=== PATIENT | female | born 1945 | race Caucasian/White ===

== ENCOUNTER 2021-05-12 22:13 | Inpatient (IN) | payer OTHER, SELFPAY ==
[~2021-05-12] VITALS: Ht 149.9 cm; Wt 114.8 kg
--- NOTE | 2021-05-12 22:18 | NUR ---
PT MARILYNA TO BED 11 VIA [facility]
[2021-05-12 22:20] VITALS: BP 123/51
--- NOTE | 2021-05-12 22:32 | NUR ---
PER EMS PATIENT WAS AMS AND LETHARGIC EARLIER AT SNF, THEY FOUND HER TO BE FEBRILE AND ADMINSITERED TYLENOL WHICH RELIEVED FEVER AND AMS. PATIENT THEN REPORTED WEAKNESS WHICH PROMPTED EMS ARRIVAL. CURRENTLY COAX4 WITH NO OTHER COMPLAINTS OTHER THAN WEAKNESS. NORMALLY AMBULATORY PER PATINET. O2 DEPENDANT RELATED TO COPD, STATES NO URINE TODAY.
[2021-05-12] MEDS ORDERED: NACL 0.9% 1,000 ML IV ONE (23:10)
--- NOTE | 2021-05-12 23:27 | NUR ---
TAKEN TO CT
[2021-05-12 23:29] LABS: BASOPHILS % (AUTO) 0.2 % (0.0-2.0); LYMPHOCYTES # (AUTO) 0.6 K/uL (2.5-16.5); LYMPHOCYTES % (AUTO) 3.6 % (20.5-51.1); MEAN CORPUSCULAR HEMOGLOBIN 25 pg (27-31); MEAN CORPUSCULAR HGB CONC 31 g/dL (33-37); MEAN CORPUSCULAR VOLUME 79.3 fL (80-94); MONOCYTES # (AUTO) 1.2 K/uL (0.8-1.0); NEUTROPHILS # (AUTO) 14.9 K/uL (1.8-7.7); NEUTROPHILS % (AUTO) 89.2 % (42.2-75.2); PLATELET COUNT (AUTO) 224 K/uL (140-450); RED BLOOD CELL COUNT(AUTO) 3.65 MIL/uL (4.20-5.40); RED CELL DISTRIBUTION WIDTH 21.8 % (11.6-13.7); WHITE BLOOD COUNT (AUTO) 16.8 K/uL (4.8-10.8)
--- NOTE | 2021-05-12 23:38 | NUR ---
PT RETURNED FROM CT VIA [facility]
[2021-05-13 00:09] LABS: ANION GAP 13.7 (8-16); ASPARTATE AMINOTRANSFERASE 20 U/L (15-37); CARBON DIOXIDE 27.4 mmol/L (21-32); CHLORIDE 102 mmol/L (98-107); CREATININE 1.7 mg/dL (0.6-1.3); GLUCOSE 138 mg/dL (74-106); POTASSIUM 4.1 mmol/L (3.5-5.1); SODIUM SERUM 139 mmol/L (136-145); TOTAL BILIRUBIN 1.1 mg/dL (0.0-1.0); UREA NITROGEN, BLOOD 29 mg/dL (7-18)
[2021-05-13 00:33] LABS: APPEARANCE,URINE CLEAR (CLEAR); BILIRUBIN,URINE NEGATIVE (NEGATIVE); BLOOD, URINE 1+ (NEGATIVE); COLOR,URINE YELLOW (YELLOW); LEUKOCYTE ESTERASE ,URINE 3+ (NEGATIVE); NITRITE, URINE NEGATIVE (NEGATIVE); UGLUCOSE NEGATIVE (NEGATIVE)
[2021-05-13 00:44] LABS: RBC,URINE 0-5 /HPF (0-5); WBC,URINE TOO MANY TO COUNT /HPF (0-5)
[2021-05-13] MEDS ORDERED: cefTRIAXone 1,000 MG VIAL ONE (00:51)
[2021-05-13] MEDS ORDERED: LEVO0.114 PO (05:56)
[2021-05-13] MEDS ORDERED: CARV12.5 PO (05:56)
[2021-05-13] MEDS ORDERED: LORA10TA19 PO (05:56)
[2021-05-13] MEDS ORDERED: ASCO-5 PO (05:56)
[2021-05-13] MEDS ORDERED: DOCU-299 PO (05:56)
[2021-05-13] MEDS ORDERED: DULO60EC1 PO (05:56)
[2021-05-13] MEDS ORDERED: FURO-572 PO (05:56)
[2021-05-13] MEDS ORDERED: GABA300C PO (05:56)
[2021-05-13] MEDS ORDERED: ACET-9535 PO ×2 (05:56)
[2021-05-13] MEDS ORDERED: MELA3TER PO (05:56)
[2021-05-13] MEDS ORDERED: IMO2 PO (05:56)
[2021-05-13] MEDS ORDERED: FERR325E14 PO (05:56)
[2021-05-13] MEDS ORDERED: SUMA100T1 PO (05:56)
[2021-05-13] MEDS ORDERED: ESCI10TA PO (05:56)
--- NOTE | 2021-05-13 07:20 | NUR ---
REPORT RECEIVED FROM GENA SHARP FOR TRANSFER OF CARE
--- NOTE | 2021-05-13 07:37 | NUR ---
Patient appears to be resting comfortably in bed. Vital Signs within normal limits. Respirations even and unlabored.
--- NOTE | 2021-05-13 08:00 | NUR ---
Patient will be admitted to care of DR. MICHELE. Admited to TELE. Will go to room 122B. Belongings list completed. Report to GENA CLOUD.
--- NOTE | 2021-05-13 08:05 | NUR ---
PT ARRIVED FROM THE ER VIA GURNEY. PT WAS TRANSFERRED TO THE BED. AWAKE AND ALERT. ON RA WITH BREATHING UNLABORED. AMBULATORY WITH STANDBY ASSIST. SKIN IS WARM, DRY, AND INTACT. IV IS IN RIGHT AC 18 GAUGE SALINE LOCKED. PT IS STABLE. PLAN OF CARE DISCUSSED.
[2021-05-13 08:15] VITALS: BP 160/92
[2021-05-13] MEDS ORDERED: ACETAMINOPHEN 325 MG TAB PO PRN (09:35)
[2021-05-13] MEDS ORDERED: MAGNESIUM OXIDE 400 MG TAB PO PRN (09:35)
[2021-05-13] MEDS ORDERED: ONDANSETRON 4 MG/2 ML VIAL IM/IVP PRN (09:35)
[2021-05-13] MEDS ORDERED: DOCUSATE SODIUM 100 MG GELCAP PO PRN (09:35)
[2021-05-13] MEDS ORDERED: SODIUM PHOS / POTASSIUM PHOS 1 PKT PDR PO PRN (09:35)
[2021-05-13] MEDS: NACL 0.9% 1,000 ML IV SCH (09:35)
[2021-05-13] MEDS ORDERED: POTASSIUM CHLORIDE 10 MEQ TABER PO PRN (09:35)
[2021-05-13] MEDS ORDERED: LORATADINE 10 MG TAB PO PRN (09:40)
[2021-05-13] MEDS ORDERED: LOPERAMIDE 2 MG CAP PO PRN (09:40)
--- NOTE | 2021-05-13 10:00 | NUR ---
PT WAS CHANGED AND REPOSITIONED. FALL GOWN PLACED ON PT. MRSA NARES SWABBED. PT DENIES PAIN AT THIS TIME. NO DISTRESS NOTED. WILL CONTINUE TO MONITOR.
[2021-05-13] MEDS: carvediloL 12.5 MG TAB PO SCH ×2 (10:36→17:33)
[2021-05-13 11:20] LABS: MAGNESIUM 2.4 mg/dL (1.8-2.4); PHOSPHORUS 4.1 mg/dL (2.5-4.9)
[2021-05-13 12:00] VITALS: BP 138/73
--- NOTE | 2021-05-13 12:00 | NUR ---
PT IS ASLEEP. CHEST RISE AND FALL SYMMETRICAL. BREATHING IS UNLABORED ON 2L O2 NC. IV FLUIDS ARE INFUSING. CALL LIGHT WITHIN REACH. PT STABLE.
--- NOTE | 2021-05-13 13:00 | NUR ---
NINAYA KOO, CALLED AND RECEIVED UPDATE ON PT. PT GAVE PERMISSION TO GIVE INFORMATION TO NAYA. ALL QUESTIONS ANSWERED. PT SPOKE TO NAYA. PT IS BACK TO SLEEP.
--- NOTE | 2021-05-13 14:00 | NUR ---
SISTER CALLED AND ASKED FOR INFORMATION ON PT. ASKED PT IF SHE WOULD LIKE ME TO GIVE INFORMATION TO SISTER AND SHE DENIED. PT IS GOING BACK TO SLEEP. NO DISTRESS NOTED.
[2021-05-13 16:00] VITALS: BP 144/72
--- NOTE | 2021-05-13 16:00 | NUR ---
ROUNDED ON PT. SHE IS AWAKE. LAYING IN SEMI FOWLERS POSITION. PT WAS CHANGED AND REPOSITIONED. NO DISTRESS NOTED AT THIS TIME.
--- NOTE | 2021-05-13 16:37 | NUR ---
PATIENT HAS BEEN SCREENED AND CATEGORIZED MODERATE NUTRITION RISK. PATIENT WILL BE SEEN WITHIN 3-5 DAYS OF ADMISSION. 05/15/21 05/17/[address]
--- NOTE | 2021-05-13 17:56 | NUR ---
RECEIVED VERBAL ORDER FROM DR. MICHELE FOR CODE STATUS DNR THE PT HAS A POLST IN CHART.
--- NOTE | 2021-05-13 18:00 | NUR ---
PT WAS CHANGED AND REPOSITIONED. PILLOWS WERE USED TO OFFSET PRESSURE OFF BUTTOCKS. IV FLUIDS ARE INFUSING. PT DENIES PAIN. PT IS STABLE. WILL CONTINUE TO MONITOR.
--- NOTE | 2021-05-13 19:29 | NUR ---
ENDORSED PT TO MARKETING PROFESSOR NURSE FOR CONTINUITY OF CARE. PT IS STABLE AT THIS TIME. PLAN OF CARE DISCUSSED.
--- NOTE | 2021-05-13 19:30 | NUR ---
RECEIVED PT SITTING UP ON BED, AAOX4, ABLE TO MAKE NEEDS KNOWN, COMPLAINING OF HEADACHE, WILL MEDICATE PRN, IVF INFUSING WELL, PLAN OF CARE DISCUSSED, SAFETY MEASURES IN PLACE, WILL ASSIST IN REPOSITIONING, FREQUENT ROUNDS WILL BE MADE, CALL LIGHT WITHIN REACH.
[2021-05-13 20:00] VITALS: BP 138/53
[2021-05-13] MEDS: SUMAtriptan succinate 50 MG TAB PO PRN (20:24)
--- NOTE | 2021-05-13 20:30 | NUR ---
PT SEEN OCCASIONALLY TAKES OFF NASAL CANNULA, PT DESAT TO 88-90%, PUT BACK ON O2 2L NC, SAT WENT UP TO 94-96%, EDUCATE PT ON IMPORTANCE OF SUPPLEMENTAL O2 AT THIS TIME, VERBALIZED UNDERSTANDING, MEDICATED PRN FOR HEADACHE WITH IMITREX ORDERED, NEEDS ATTENDED.
[2021-05-13] MEDS: DOCUSATE SODIUM 100 MG GELCAP PO SCH (20:37)
[2021-05-14] VITALS: BP 151/70
[2021-05-14] MEDS ORDERED: cefTRIAXone 1,000 MG VIAL ONE (00:29)
--- NOTE | 2021-05-14 00:35 | NUR ---
PT SLEEPING, EASILY AROUSABLE, VITAL SIGNS STABLE, IV LINE LEAKING, NEW IV LINE INSERTED, ROCEPHIN IVPB ADMINISTERED ORDERED, CONTINUE TO MONITOR CLOSELY.
[2021-05-14] MEDS: HYDROcodone/APAP 5/325 MG 1 TAB TAB PO PRN ×2 (01:43→10:55)
[2021-05-14] MEDS: NACL 0.9% 1,000 ML IV SCH ×3 (02:15→18:55)
[2021-05-14 04:00] VITALS: BP 142/65
--- NOTE | 2021-05-14 04:40 | NUR ---
PT HAD A LARGE LOOSE STOOL, PERINEAL CARE DONE, REPOSITIONED, NO DISTRESS NOTED, MONITORED CLOSELY.
--- NOTE | 2021-05-14 05:50 | NUR ---
DUE SYNTHROID GIVEN, TOLERATED WELL, IVF INFUSING WELL, NO DISTRESS NOTED.
[2021-05-14] MEDS: LEVOTHYROXINE 0.112 MG TAB PO SCH (06:01)
[2021-05-14 07:05] LABS: BASOPHILS % (AUTO) 0.1 % (0.0-2.0); EOSINOPHILS % (AUTO) 0.1 % (0.0-4.0); HEMATOCRIT 28.5 % (36-48); HEMOGLOBIN 8.7 g/dL (12.0-16.0); LYMPHOCYTES # (AUTO) 0.9 K/uL (2.5-16.5); LYMPHOCYTES % (AUTO) 6.5 % (20.5-51.1); MEAN CORPUSCULAR HEMOGLOBIN 25 pg (27-31); MEAN CORPUSCULAR HGB CONC 31 g/dL (33-37); MEAN CORPUSCULAR VOLUME 80.7 fL (80-94); MONOCYTES # (AUTO) 1.3 K/uL (0.8-1.0); MONOCYTES % (AUTO) 9.6 % (1.7-9.3); NEUTROPHILS # (AUTO) 11.3 K/uL (1.8-7.7); NEUTROPHILS % (AUTO) 83.7 % (42.2-75.2); PLATELET COUNT (AUTO) 194 K/uL (140-450); RED BLOOD CELL COUNT(AUTO) 3.53 MIL/uL (4.20-5.40); RED CELL DISTRIBUTION WIDTH 21.5 % (11.6-13.7); WHITE BLOOD COUNT (AUTO) 13.5 K/uL (4.8-10.8)
--- NOTE | 2021-05-14 07:20 | NUR ---
PT AWAKE, NO SIGNS OF DISTRESS, BEDSIDE REPORT GIVEN TO VICKIE AVERY FOR CONTINUITY OF CARE.
--- NOTE | 2021-05-14 07:25 | NUR ---
RECEIVED PT FROM NIGHT RN, PT IS AWAKE AND SEATED ON THE BED WITH SIDE RAILS UP AND CALL LIGHT WITHIN REACH, PT IS ON O2 2L NC, ON BEDREST, FOR GENERALIZED WEAKNESS,IV LINE NOTED ON THE RT HAND G. 22 WITH IVF NS INFUSING AT 60ML/HR, NO SIGN OF DISTRESS NOTED AND WILL CONTINUE TO MONITOR PT.
[2021-05-14 07:47] LABS: ANION GAP 15.9 (8-16); CARBON DIOXIDE 24.5 mmol/L (21-32); CHLORIDE 106 mmol/L (98-107); CREATININE 1.6 mg/dL (0.6-1.3); GLUCOSE 108 mg/dL (74-106); POTASSIUM 4.4 mmol/L (3.5-5.1); SODIUM SERUM 142 mmol/L (136-145); UREA NITROGEN, BLOOD 32 mg/dL (7-18)
[2021-05-14 08:00] VITALS: BP 140/65
[2021-05-14] MEDS: carvediloL 12.5 MG TAB PO SCH ×3 (08:00→16:32)
[2021-05-14] MEDS: DOCUSATE SODIUM 100 MG GELCAP PO SCH ×2 (09:00→21:00)
--- NOTE | 2021-05-14 10:30 | NUR ---
PT IS AWAKE AND WAS ASSISTED TO BE REPOSITIONED, NO SIGN OF DISTRESS NOTED AND WILL CONTINUE TO MONITOR PT.
[2021-05-14] MEDS: ESCITALOPRAM 20 MG TAB PO SCH (10:51)
[2021-05-14] MEDS: PANTOPRAZOLE 40 MG TABEC PO SCH (10:53)
[2021-05-14] MEDS: DULoxetine 30 MG CAPDR PO SCH (10:54)
[2021-05-14] MEDS: ASCORBIC ACID 500 MG TAB PO SCH (10:54)
[2021-05-14] MEDS: FERROUS SULFATE 325 MG TABEC PO SCH (10:54)
[2021-05-14 12:00] VITALS: BP 142/70
--- NOTE | 2021-05-14 12:30 | NUR ---
PT HAS POOR APPETITE, WAS ASKED FOR FOOD PREFERENCE AND VERBALIZED SHE DOES NOT WANT TO EAT, AWARE
--- NOTE | 2021-05-14 14:20 | NUR ---
PT IS RESTING AND SLEEPING NOW, NO SIGN OF DISTRESS NOTED.
[2021-05-14 16:00] VITALS: BP 141/52
[2021-05-14] MEDS: SUMAtriptan succinate 50 MG TAB PO PRN (16:32)
--- NOTE | 2021-05-14 16:34 | NUR ---
PT C/O HEADACHE AND WAS MEDICATED NOW
--- NOTE | 2021-05-14 19:30 | NUR ---
ENDORSED PT TO NIGHT RN FOR CONTINUITY OF CARE.
[2021-05-14 20:00] VITALS: BP 152/77
[2021-05-15] VITALS: BP 144/72
[2021-05-15] MEDS: MELATONIN 3 MG TAB PO PRN ×2 (01:11→21:44)
[2021-05-15] MEDS: MORPHINE SULFATE 2 MG/ML SYR IVP PRN ×2 (01:11→21:44)
--- NOTE | 2021-05-15 02:19 | NUR ---
PATIENT AWAKE ALERT OBESE SINUS ON MONITOR HAS 02 ON 2 LITERS N/C. LUNGS DIMINISH TEMP 98.5 HAS RIGHT HAND 22 GA INFUSING N.S 60 HOUR. ABDOMEN SOFT AND OBESE. SKIN INTACT NO SIGNS OF DISTRESS. PATIENT C/O OF PAIN IN BACK, HEAD MEDICATED WITH MORPHINE 1 MG IVP AND MELATONIN 3 MG PO FOR SLEEP. PATIENT IS A DNR.
[2021-05-15] MEDS: NACL 0.9% 1,000 ML IV SCH (02:51)
[2021-05-15 04:00] VITALS: BP 138/70
[2021-05-15 06:13] LABS: BASOPHILS % (AUTO) 0.3 % (0.0-2.0); EOSINOPHILS # (AUTO) 0.1 K/uL (0-0.4); EOSINOPHILS % (AUTO) 1.7 % (0.0-4.0); HEMATOCRIT 28.4 % (36-48); LYMPHOCYTES # (AUTO) 0.9 K/uL (2.5-16.5); MEAN CORPUSCULAR HEMOGLOBIN 25 pg (27-31); MEAN CORPUSCULAR HGB CONC 32 g/dL (33-37); MEAN CORPUSCULAR VOLUME 79.4 fL (80-94); MONOCYTES # (AUTO) 0.7 K/uL (0.8-1.0); MONOCYTES % (AUTO) 8.4 % (1.7-9.3); NEUTROPHILS # (AUTO) 6.7 K/uL (1.8-7.7); PLATELET COUNT (AUTO) 203 K/uL (140-450); RED BLOOD CELL COUNT(AUTO) 3.58 MIL/uL (4.20-5.40); RED CELL DISTRIBUTION WIDTH 21.1 % (11.6-13.7); WHITE BLOOD COUNT (AUTO) 8.5 K/uL (4.8-10.8)
[2021-05-15 06:18] LABS: ANION GAP 12.4 (8-16); CARBON DIOXIDE 25.5 mmol/L (21-32); CHLORIDE 106 mmol/L (98-107); CREATININE 1.3 mg/dL (0.6-1.3); GLUCOSE 110 mg/dL (74-106); POTASSIUM 3.9 mmol/L (3.5-5.1); SODIUM SERUM 140 mmol/L (136-145); UREA NITROGEN, BLOOD 32 mg/dL (7-18)
[2021-05-15] MEDS: LEVOTHYROXINE 0.112 MG TAB PO SCH (06:29)
[2021-05-15 07:13] LABS: LYMPHOCYTES % (AUTO) 10.4 % (20.5-51.1); NEUTROPHILS % (AUTO) 79.2 % (42.2-75.2)
--- NOTE | 2021-05-15 07:16 | NUR ---
RECEIVED PT FROM ERECTING ENGINEER NURSE. NO S/S OF DISTRESS. BREATHING SYMMETRICAL. PT STABLE. CALL LIGHT IN REACH. ALL SAFETY MEASURES IN PLACE. IV RUNNING PER MD ORDERS
[2021-05-15 08:00] VITALS: BP 135/84
[2021-05-15] MEDS: DOCUSATE SODIUM 100 MG GELCAP PO SCH ×2 (08:24→21:00)
[2021-05-15] MEDS: FERROUS SULFATE 325 MG TABEC PO SCH (08:24)
[2021-05-15] MEDS: DULoxetine 30 MG CAPDR PO SCH (08:24)
[2021-05-15] MEDS: ASCORBIC ACID 500 MG TAB PO SCH (08:25)
[2021-05-15] MEDS: ESCITALOPRAM 20 MG TAB PO SCH (08:26)
[2021-05-15] MEDS: PANTOPRAZOLE 40 MG TABEC PO SCH (08:27)
[2021-05-15] MEDS: carvediloL 12.5 MG TAB PO SCH ×2 (08:31→17:47)
--- NOTE | 2021-05-15 08:38 | NUR ---
PT RESTING IN BED. NO S/S OF DISTRESS. BREATHING SYMMETRICAL. PT STABLE. CALL LIGHT IN REACH. ALL SAFETY MEASURES IN PLACE. IV RUNNING PER MD ORDERS. PATIENT ALERT AND ORIENTED TO NAME, DATE. DOES NOT REMEMBER WHERE SHE CAME FORM OR WHY SHE WAS BROUGHT IN.
--- NOTE | 2021-05-15 11:34 | NUR ---
PT RESTING IN BED. NO S/S OF DISTRESS. BREATHING SYMMETRICAL. CALL LIGHT IN REACH. ALL SAFETY MEASURES IN PLACE. IV RUNNING PER MD ORDERS.
--- NOTE | 2021-05-15 13:46 | NUR ---
PT RESTING IN BED. NO S/S OF DISTRESS. BREATHING SYMMETRICAL. CALL LIGHT IN REACH. ALL SAFETY MEASURES IN PLACE. IV RUNNING PER MD ORDERS. PT GOWN AND LINENS CHANGED.
[2021-05-15] MEDS: HYDROcodone/APAP 5/325 MG 1 TAB TAB PO PRN (15:42)
--- NOTE | 2021-05-15 15:44 | NUR ---
PT REPORTED PAIN 6/10 IN HEAD AND ABDOMEN. DESCRIBED SQUEEZING PAIN. PATIENT MEDICATED PER MD ORDERS. VERBALIZED UNDERSTANDING OF EDUCATION. NO S/S OF DISTRESS. CALL LIGHT IN REACH. REORIENTED PT TO CALL LIGHT. ALL SAFETY MEASURES IN PLACE.
[2021-05-15 16:00] VITALS: BP 150/69
--- NOTE | 2021-05-15 16:44 | NUR ---
PT REASSESSED FOR PAIN. PT STATED PAIN REDUCED TO 4/10. PT RESTING IN BED. NO S/S OF DISTRESS. BREATHING SYMMETRICAL. CALL LIGHT IN REACH. ALL SAFETY MEASURES IN PLACE. IV RUNNING PER MD ORDERS.
--- NOTE | 2021-05-15 19:43 | NUR ---
ENDORSED PATIENT TO TEACHER LEARNING DISABLED NURSE FOR CONTINUITY OF CARE. NO S/S OF DISTRESS. BREATHING SYMMETRICAL. CALL LIGHT IN REACH. ALL SAFETY MEASURES IN PLACE. IV RUNNING PER MD ORDERS.
[2021-05-15 20:00] VITALS: BP 141/66
[2021-05-16] VITALS: BP 136/69
--- NOTE | 2021-05-16 01:52 | NUR ---
PATIENT AWAKE ALERTX3 C/O OF GENERAL PAIN MEDICATED WITH MORPHINE 1 MG AND MELATONIN 3 MG PO. PATIENT LUNGS DIMINISH ON ROOM AIR SAT 96% PATIENT SINUS JOSE 50 ON MONITOR TEMP 99.4 AUX. HAS 22 GA IN RIGHT HAND INFUSING N.S 60 HOUR. PATIENT IS A DNR.PATIENT DOES NOT WANT TO WEAR HER 02 SAYS IT HURTS HER EARS. NO SIGNS OF DISTRESS. ALESSIO TINAJERO RN.
[2021-05-16] MEDS: MORPHINE SULFATE 2 MG/ML SYR IVP PRN ×2 (03:12→09:53)
[2021-05-16 06:54] LABS: BASOPHILS # (AUTO) 0.1 K/uL (0.00-0.22); BASOPHILS % (AUTO) 0.8 % (0.0-2.0); EOSINOPHILS # (AUTO) 0.3 K/uL (0-0.4); EOSINOPHILS % (AUTO) 3.5 % (0.0-4.0); HEMATOCRIT 30.4 % (36-48); HEMOGLOBIN 9.5 g/dL (12.0-16.0); LYMPHOCYTES # (AUTO) 0.9 K/uL (2.5-16.5); MEAN CORPUSCULAR HEMOGLOBIN 25 pg (27-31); MEAN CORPUSCULAR HGB CONC 31 g/dL (33-37); MEAN CORPUSCULAR VOLUME 79.2 fL (80-94); MONOCYTES # (AUTO) 0.8 K/uL (0.8-1.0); MONOCYTES % (AUTO) 11.1 % (1.7-9.3); NEUTROPHILS # (AUTO) 5.2 K/uL (1.8-7.7); NEUTROPHILS % (AUTO) 72.6 % (42.2-75.2); PLATELET COUNT (AUTO) 211 K/uL (140-450); RED BLOOD CELL COUNT(AUTO) 3.84 MIL/uL (4.20-5.40); RED CELL DISTRIBUTION WIDTH 20.6 % (11.6-13.7); WHITE BLOOD COUNT (AUTO) 7.2 K/uL (4.8-10.8)
[2021-05-16 07:08] LABS: ANION GAP 9.7 (8-16); CARBON DIOXIDE 26.2 mmol/L (21-32); CHLORIDE 108 mmol/L (98-107); CREATININE 1.2 mg/dL (0.6-1.3); GLUCOSE 92 mg/dL (74-106); POTASSIUM 3.9 mmol/L (3.5-5.1); SODIUM SERUM 140 mmol/L (136-145); UREA NITROGEN, BLOOD 29 mg/dL (7-18)
--- NOTE | 2021-05-16 07:15 | NUR ---
RECEIVED REPORT FROM NIGHT NURSE, THE PATIENT IS SLEEPING, PT NOT IN DISTRESS. BREATHING IS EVEN AND UNLABORED. IV INTACT ON R HND 22G INTACT AND PATENT. SAFETY MEASURES IN PLACE AND CALL LIGHT WITHIN REACH.
[2021-05-16] MEDS: carvediloL 12.5 MG TAB PO SCH (08:00)
[2021-05-16] MEDS ORDERED: IV Rocephin IV (09:25)
[2021-05-16] MEDS: ESCITALOPRAM 20 MG TAB PO SCH (09:52)
--- NOTE | 2021-05-16 09:53 | NUR ---
PAIN MEDS PRN PER MD GIVEN FOR 8/10 PAIN FOR HEADACHE. PT BP IS GOOD AND WILL REASSESS AGAIN IN 1 HOUR.
[2021-05-16] MEDS: DOCUSATE SODIUM 100 MG GELCAP PO SCH (09:55)
[2021-05-16] MEDS: DULoxetine 30 MG CAPDR PO SCH (09:55)
[2021-05-16] MEDS: ASCORBIC ACID 500 MG TAB PO SCH (09:56)
[2021-05-16] MEDS: FERROUS SULFATE 325 MG TABEC PO SCH (09:56)
[2021-05-16] MEDS: PANTOPRAZOLE 40 MG TABEC PO SCH (09:57)
--- NOTE | 2021-05-16 10:53 | NUR ---
PAIN REASSESSED . PT SAYS PAIN IS NOW 2/10. MEDICATION WAS EFFECTIVE. PT IS STABLE.
--- NOTE | 2021-05-16 11:22 | NUR ---
DC PLANNING: THE PATIENT ADMITED THROUGH THE ED WIHT C/O FEVERS AND GENERALIZED WEAKNESS. WBC'S ON ADMISSION 16.8, STARTED ON IV ABX OF ROCEPHIN, PT EVAL DONE. CM SPOKE WITH THE PATIENTS NIECE NAYA BY PHONE, THE PATIENT CAME FROM [facility], HAS BEEN THERE FOR A FEW MONTHS FROM A RESIDENTIAL SETTING IN [facility]. THE PATIENT IS ABLE TO DO BED ACTIVITIES HERE WITH P.T., WAS ABLE TO AMBULATE AT THE SNF WITH HER FWW. NEEDS MIN ASSIST WITH BATHING AND DRESSING, IS SOMETIMES CONFUSED. HER NIECE IS IN AGREEMENT WITH THE PATIENT RETURNING TO [facility]. ASSIGNED TO ROOM 7C WITH DR DRAPER THE ACCEPTING MD. DANILO IN ADMITTING WILL CALL BACK WITH THE BOTTOM BUFFER TIME AND COMPANY NAME. [facility] [address] [facility] [id number] TO CALL REPORT
--- NOTE | 2021-05-16 14:00 | NUR ---
PT IS BEING PICKED UP BY TRANSPORT TO TRANSFER TO [facility] AND WILL CONTINUE IV ROCEPHIN.
== END 2021-05-16 14:00 | DRG 871 ==
LOC: MED 22:13 → MTU 05-13 01:34
PROVIDERS: ADMIT Hospitalist; ATTEND Hospitalist
DX: A41.9 Sepsis, unspecified organism (principal); N17.0 Acute kidney failure with tubular necrosis; J18.9 Pneumonia, unspecified organism; Z68.43 Body mass index [BMI] 50.0-59.9, adult; E44.0 Moderate protein-calorie malnutrition; N12 Tubulo-interstitial nephritis, not specified as acute or chronic; F32.9 Major depressive disorder, single episode, unspecified; F41.9 Anxiety disorder, unspecified; E03.9 Hypothyroidism, unspecified; E66.01 Morbid (severe) obesity due to excess calories; G25.81 Restless legs syndrome; G47.00 Insomnia, unspecified; G62.9 Polyneuropathy, unspecified; Z20.822 Contact with and (suspected) exposure to COVID-19; Z79.890 Hormone replacement therapy; Z79.899 Other long term (current) drug therapy
CPT/HCPCS: 36415; 70450; 71045; 80048; 80053; 81001; 83605; 83735; 84100; 84484; 85025; 87040; 87081; 87086; 87804; 93005; 96361; 96365; 97163-GP; 97530; 99285; J0696; J1644; J2270; J7060; Q0092

== ENCOUNTER 2022-06-02 23:37 | Inpatient (IN) | payer OTHER ==
[~2022-06-02] VITALS: Ht 149.9 cm; Wt 111.1 kg
[2022-06-02 23:37] VITALS: BP 150/78
[~2022-06-02 23:37] MED LIST: ACET-9535 PO; ASCO-5 PO; CARV12.5 PO; DOCU-299 PO; DULO60EC1 PO; ESCI10TA PO; FERR325E14 PO; FURO-572 PO; GABA300C PO; IMO2 PO; IV Rocephin IV; IV Zosyn IV; LEVO0.114 PO; LORA10TA19 PO; MELA3TER PO; SUMA100T1 PO
--- NOTE | 2022-06-02 23:42 | NUR ---
PT BROUGHT TO BED 1 VIA [facility]
[2022-06-03] MEDS ORDERED: NACL 0.9% 1,000 ML IV ONE (01:50)
[2022-06-03 02:35] LABS: ANION GAP 12.5 (8-16); ASPARTATE AMINOTRANSFERASE 101 U/L (15-37); CHLORIDE 104 mmol/L (98-107); CREATININE 1.7 mg/dL (0.6-1.3); GLUCOSE 98 mg/dL (74-106); POTASSIUM 3.5 mmol/L (3.5-5.1); SODIUM SERUM 143 mmol/L (136-145); TOTAL BILIRUBIN 0.4 mg/dL (0.0-1.0); UREA NITROGEN, BLOOD 30 mg/dL (7-18)
[2022-06-03 02:37] LABS: BASOPHILS % (AUTO) 0.5 % (0.0-2.0); EOSINOPHILS # (AUTO) 0.3 K/uL (0-0.4); HEMATOCRIT 29.2 % (36-48); HEMOGLOBIN 9.2 g/dL (12.0-16.0); LYMPHOCYTES # (AUTO) 1.3 K/uL (2.5-16.5); LYMPHOCYTES % (AUTO) 14.3 % (20.5-51.1); MEAN CORPUSCULAR HEMOGLOBIN 27 pg (27-31); MEAN CORPUSCULAR HGB CONC 32 g/dL (33-37); MEAN CORPUSCULAR VOLUME 85.3 fL (80-94); MONOCYTES # (AUTO) 1.1 K/uL (0.8-1.0); MONOCYTES % (AUTO) 11.6 % (1.7-9.3); NEUTROPHILS # (AUTO) 6.5 K/uL (1.8-7.7); NEUTROPHILS % (AUTO) 70.6 % (42.2-75.2); PLATELET COUNT (AUTO) 206 K/uL (140-450); RED BLOOD CELL COUNT(AUTO) 3.43 MIL/uL (4.20-5.40); RED CELL DISTRIBUTION WIDTH 20.4 % (11.6-13.7); WHITE BLOOD COUNT (AUTO) 9.2 K/uL (4.8-10.8)
--- NOTE | 2022-06-03 03:28 | NUR ---
ATTEMPTED FOR IV ACCESS x3 AND UNSUCCESSFUL. PRIMARY RN NOTIFIED.
[2022-06-03 04:05] LABS: BILIRUBIN,URINE NEGATIVE (NEGATIVE); BLOOD, URINE NEGATIVE (NEGATIVE); COLOR,URINE YELLOW (YELLOW); LEUKOCYTE ESTERASE ,URINE NEGATIVE (NEGATIVE); NITRITE, URINE POSITIVE (NEGATIVE); PH,URINE 5.5 (5.0-9.0); UGLUCOSE NEGATIVE (NEGATIVE)
[2022-06-03 04:13] LABS: APPEARANCE,URINE SLIGHTLY HAZY (CLEAR); RBC,URINE 0-5 /HPF (0-5); WBC,URINE 0-5 /HPF (0-5)
[2022-06-03] MEDS ORDERED: MELATONIN 3 MG TAB PO PRN (05:00)
[2022-06-03] MEDS ORDERED: POTASSIUM CHLORIDE 10 MEQ TABER PO PRN (05:00)
[2022-06-03] MEDS ORDERED: NACL 0.9% 1,000 ML IV SCH (05:00)
[2022-06-03] MEDS ORDERED: ZOLPIDEM 10 MG TAB PO PRN (05:00)
[2022-06-03] MEDS ORDERED: LORazepam 2 MG/ML VIAL IVP PRN (05:00)
[2022-06-03] MEDS ORDERED: ONDANSETRON 4 MG/2 ML VIAL IVP PRN (05:00)
[2022-06-03] MEDS ORDERED: DOCUSATE SODIUM 100 MG GELCAP PO PRN (05:00)
[2022-06-03] MEDS ORDERED: MAG SULF 2000 MG/WATER PREMIX 50 ML IV PRN (05:00)
[2022-06-03] MEDS ORDERED: ACETAMINOPHEN 325 MG TAB PO PRN (05:00)
[2022-06-03] MEDS ORDERED: cefTRIAXone 1,000 MG VIAL ONE (05:49)
[2022-06-03] MEDS: LEVOTHYROXINE 0.112 MG TAB PO SCH (06:36)
--- NOTE | 2022-06-03 07:15 | NUR ---
Received report from GENA Hrenandez for transfer of care.
--- NOTE | 2022-06-03 07:59 | NUR ---
Grace-care provided, diaper was changed and linen replaced.
--- NOTE | 2022-06-03 08:34 | NUR ---
Patient will be admitted to care of Dr. Babcock. Admited to Telemetry. Will go to room 107-B. Belongings list completed. Report to GENA Oliva.
--- NOTE | 2022-06-03 08:50 | NUR ---
Chart checked and completed. The patient's care was reviewed and supervised by Marquita Montague RN.
[2022-06-03] MEDS: carvediloL 12.5 MG TAB PO SCH ×2 (09:00→20:36)
[2022-06-03] MEDS: FERROUS SULFATE 325 MG TABEC PO SCH (09:00)
[2022-06-03] MEDS: GABAPENTIN 300 MG CAP PO SCH (09:00)
[2022-06-03] MEDS: ESCITALOPRAM 20 MG TAB PO SCH (09:00)
[2022-06-03] MEDS: ASCORBIC ACID 500 MG TAB PO SCH (09:00)
[2022-06-03] MEDS: DOCUSATE SODIUM 100 MG GELCAP PO SCH ×3 (09:00→21:00)
--- NOTE | 2022-06-03 10:22 | NUR ---
PATIENT HAS BEEN SCREENED AND CATEGORIZED MODERATE NUTRITION RISK. PATIENT WILL BE SEEN WITHIN 3-5 DAYS OF ADMISSION. 06/06/[address]
[2022-06-03] MEDS: MORPHINE SULFATE 2 MG/ML SYR IVP PRN ×2 (11:35→20:38)
[2022-06-03 12:00] VITALS: BP 137/57
[2022-06-03 18:34] VITALS: BP 134/60
--- NOTE | 2022-06-03 20:35 | NUR ---
PT REFUSED COLACE. PT DOES NOT WANT TO HAVE DIARRHEA. PT STATED SHE WOULD TAKE COLACE TOMORROW IF SHE DOES NOT POOP, PT VERBALIZED NOTHING WRONG WITH HER BM, ALWAYS NORMAL.
[2022-06-04] VITALS: BP 134/63
[2022-06-04] MEDS: SUMAtriptan succinate 50 MG TAB PO PRN ×2 (03:15→20:48)
--- NOTE | 2022-06-04 03:15 | NUR ---
PT COMPLAINTS OF MIGRAINE, MEDICATION IMITREX ADMINISTERED ORDER.
[2022-06-04 04:00] VITALS: BP 124/69
[2022-06-04 06:49] LABS: BASOPHILS % (AUTO) 0.6 % (0.0-2.0); EOSINOPHILS # (AUTO) 0.3 K/uL (0-0.4); EOSINOPHILS % (AUTO) 3.5 % (0.0-4.0); HEMATOCRIT 30.1 % (36-48); HEMOGLOBIN 9.3 g/dL (12.0-16.0); LYMPHOCYTES # (AUTO) 0.8 K/uL (2.5-16.5); LYMPHOCYTES % (AUTO) 9.9 % (20.5-51.1); MEAN CORPUSCULAR HEMOGLOBIN 27 pg (27-31); MEAN CORPUSCULAR HGB CONC 31 g/dL (33-37); MEAN CORPUSCULAR VOLUME 86.7 fL (80-94); MONOCYTES # (AUTO) 0.6 K/uL (0.8-1.0); MONOCYTES % (AUTO) 8.3 % (1.7-9.3); NEUTROPHILS # (AUTO) 6.1 K/uL (1.8-7.7); NEUTROPHILS % (AUTO) 77.7 % (42.2-75.2); PLATELET COUNT (AUTO) 193 K/uL (140-450); RED BLOOD CELL COUNT(AUTO) 3.47 MIL/uL (4.20-5.40); RED CELL DISTRIBUTION WIDTH 20.4 % (11.6-13.7); WHITE BLOOD COUNT (AUTO) 7.8 K/uL (4.8-10.8)
[2022-06-04] MEDS: LEVOTHYROXINE 0.112 MG TAB PO SCH (06:57)
[2022-06-04 06:58] LABS: ANION GAP 11.8 (8-16); CARBON DIOXIDE 28.2 mmol/L (21-32); CHLORIDE 109 mmol/L (98-107); CREATININE 1.1 mg/dL (0.6-1.3); GLUCOSE 94 mg/dL (74-106); SODIUM SERUM 145 mmol/L (136-145); UREA NITROGEN, BLOOD 23 mg/dL (7-18)
[2022-06-04 08:00] VITALS: BP 136/59
[2022-06-04] MEDS: GABAPENTIN 300 MG CAP PO SCH (09:00)
[2022-06-04] MEDS: ASCORBIC ACID 500 MG TAB PO SCH (09:00)
[2022-06-04] MEDS: DOCUSATE SODIUM 100 MG GELCAP PO SCH ×2 (09:00→20:36)
[2022-06-04] MEDS: FERROUS SULFATE 325 MG TABEC PO SCH (09:00)
[2022-06-04] MEDS: ESCITALOPRAM 20 MG TAB PO SCH (09:00)
[2022-06-04] MEDS: carvediloL 12.5 MG TAB PO SCH ×2 (09:00→20:47)
[2022-06-04] MEDS: MORPHINE SULFATE 2 MG/ML SYR IVP PRN ×3 (10:12→23:25)
[2022-06-04 12:00] VITALS: BP 131/62
[2022-06-04 16:20] VITALS: BP 136/65
[2022-06-04 20:00] VITALS: BP 118/57
--- NOTE | 2022-06-04 20:37 | NUR ---
PT REFUSED COLACE.
[2022-06-05] VITALS: BP 118/57
[2022-06-05 04:00] VITALS: BP 106/41
[2022-06-05] MEDS: LEVOTHYROXINE 0.112 MG TAB PO SCH (06:30)
[2022-06-05 06:49] LABS: BASOPHILS # (AUTO) 0.1 K/uL (0.00-0.22); BASOPHILS % (AUTO) 0.9 % (0.0-2.0); EOSINOPHILS # (AUTO) 0.3 K/uL (0-0.4); EOSINOPHILS % (AUTO) 3.8 % (0.0-4.0); HEMATOCRIT 29.1 % (36-48); HEMOGLOBIN 9.1 g/dL (12.0-16.0); LYMPHOCYTES % (AUTO) 15.8 % (20.5-51.1); MEAN CORPUSCULAR HEMOGLOBIN 27 pg (27-31); MEAN CORPUSCULAR HGB CONC 31 g/dL (33-37); MEAN CORPUSCULAR VOLUME 87.2 fL (80-94); MONOCYTES # (AUTO) 0.6 K/uL (0.8-1.0); MONOCYTES % (AUTO) 9.6 % (1.7-9.3); NEUTROPHILS # (AUTO) 4.6 K/uL (1.8-7.7); NEUTROPHILS % (AUTO) 69.9 % (42.2-75.2); PLATELET COUNT (AUTO) 183 K/uL (140-450); RED BLOOD CELL COUNT(AUTO) 3.34 MIL/uL (4.20-5.40); RED CELL DISTRIBUTION WIDTH 20.5 % (11.6-13.7); WHITE BLOOD COUNT (AUTO) 6.5 K/uL (4.8-10.8)
--- NOTE | 2022-06-05 07:20 | NUR ---
RECEIVED REPORT FROM NIGHTSHIFT NURSE ALYSSA FOR CONTINUITY OF CARE. PT IN STABLE CONDITION. PT IS A/OX4 AND CURRENTLY SLEEPING. BREATHING EVEN, REGULAR, AND UNLABORED ON ROOM AIR. PT IS CONTINENT OF THE BOWEL AND BLADDER. PT IS ABLE TO AMBULATE WITH ASSISTANCE. PT SKIN INTACT.
[2022-06-05 07:53] LABS: CARBON DIOXIDE 27.1 mmol/L (21-32); CHLORIDE 108 mmol/L (98-107); CREATININE 1.1 mg/dL (0.6-1.3); GLUCOSE 105 mg/dL (74-106); POTASSIUM 4.1 mmol/L (3.5-5.1); SODIUM SERUM 144 mmol/L (136-145); UREA NITROGEN, BLOOD 22 mg/dL (7-18)
[2022-06-05 08:00] VITALS: BP 157/82
--- NOTE | 2022-06-05 08:40 | NUR ---
NOTED ON MICROBIOLOGY THAT PT WAS MRSA POSITIVE IN THE NARES. DID NOT RECEIVE CALL FROM LAB. NOTIFIED , MRSA PROTOCOL INITIATED.
[2022-06-05] MEDS: DOCUSATE SODIUM 100 MG GELCAP PO SCH ×3 (09:00→20:58)
[2022-06-05] MEDS: MORPHINE SULFATE 2 MG/ML SYR IVP PRN ×2 (09:20→20:58)
--- NOTE | 2022-06-05 09:20 | NUR ---
MEDICATED PT, PT REFUSED COLACE. PT COMPLAINED OF GENERALIZED PAIN 02/15. MEDICATED PRN MORPHINE.
[2022-06-05] MEDS: GABAPENTIN 300 MG CAP PO SCH (09:43)
[2022-06-05] MEDS: carvediloL 12.5 MG TAB PO SCH ×2 (09:44→20:58)
[2022-06-05] MEDS: ASCORBIC ACID 500 MG TAB PO SCH (09:44)
[2022-06-05] MEDS: FERROUS SULFATE 325 MG TABEC PO SCH (09:44)
[2022-06-05] MEDS: MUPIROCIN CA NASAL 2% 1GM TUBE NS SCH (09:44)
[2022-06-05] MEDS: ESCITALOPRAM 20 MG TAB PO SCH (09:44)
[2022-06-05] MEDS: CHLORHEXADINE GLUC 2% CLOTH TP SCH (09:45)
--- NOTE | 2022-06-05 11:00 | NUR ---
PT VISUALLY ASSESSED. CURRENTLY SLEEPING WITH NO SIGNS OF PAIN OR DISTRESS NOTED.
[2022-06-05 12:00] VITALS: BP 128/56
[2022-06-05] MEDS ORDERED: MECL-303 PO (12:17)
[2022-06-05] MEDS: SUMAtriptan succinate 50 MG TAB PO PRN (13:30)
--- NOTE | 2022-06-05 13:30 | NUR ---
PT COMPLAINED OF MIGRAINE PAIN AND REQUESTED PRN IMITREX. MEDICATED PT.
--- NOTE | 2022-06-05 15:00 | NUR ---
PT VISUALLY ASSESSED. CURRENTLY SLEEPING WITH NO SIGNS OF PAIN OR DISTRESS NOTED.
[2022-06-05 15:07] VITALS: BP 128/56
--- NOTE | 2022-06-05 17:00 | NUR ---
PT VISUALLY ASSESSED. NO SIGNS OF PAIN OR DISTRESS NOTED.
--- NOTE | 2022-06-05 19:15 | NUR ---
REPORT RECEIVED FROM DAYSXANDERFT RN. PATIENT RECEIVED IN STABLE CONDITION. DENIES PAIN AT TIME OF ASSESSMENT. HELPED PATIENT UP TO RESTROOM. PATIENT DID WELL WITH STANDBY ASSIST TO THE RESTROOM. PATIENT VOIDED AND WAS HELPED TO WASH HER HANDS AND GET BACK TO BED WITHOUT EVENT. WILL CONTINUE TO MONITOR.
--- NOTE | 2022-06-05 19:30 | NUR ---
ENDORSED PT TO NIGHTSHIFT NURSE LILIA FOR CONTINUITY OF CARE. PT IN STABLE CONDITION.
[2022-06-05 20:00] VITALS: BP 125/48
--- NOTE | 2022-06-05 23:00 | NUR ---
JOYCE MILLS TOOK OVER THE PATIENT FROM GENA ECHAVARRIA. DISCUSSED AND REVIEWED PATIENT POC WITH JOYCE SCOTT.
[2022-06-06] VITALS: BP 108/57
[2022-06-06] MEDS: SUMAtriptan succinate 50 MG TAB PO PRN (01:51)
--- NOTE | 2022-06-06 01:51 | NUR ---
PATIENT NOTED IN BED ASLEEP AFTER GIVING HER THE IMITREX PRN. PATIENT WAS ABLE TO EXPLAIN IN SIMPLE EXPLANATION OF THE REASON FOR HER VISIT TO THE HOSPITAL. PATIENT IS AWARE ORDERS FOR DISCHARGE ARE IN AND PLANS TO LEAVE TODAY. [email or web address]
--- NOTE | 2022-06-06 03:46 | NUR ---
PATIENT WAS GIVEN MIGRAINE MEDICATION AND NO MORE C/O HEADACHE. PATIENT C/O RESTLESS LEGS, ASSISTED TO RESTROOM. PATIENT SAT AT THE EDGE OF THE BED THEN GOT BACK IN TO SLEEP. [id number]
[2022-06-06 04:00] VITALS: BP 142/55
--- NOTE | 2022-06-06 05:07 | NUR ---
PATIENT NOTED IN BED ASLEEP. NO S/S OF PAIN. NO NOTED S/S OF ADVERSE REACTION TO MEDICATION. NO NOTED S/S OR RESPIRATORY DISTRESS. [email or web address]
[2022-06-06] MEDS: LEVOTHYROXINE 0.112 MG TAB PO SCH (07:30)
--- NOTE | 2022-06-06 07:38 | NUR ---
ENDORSED PATIENT TO JEANNIE RN FOR CONTINUITY OF CARE, PATIENT WAS STABLE AT CHANGE OF SHIFT. [email or web address]
[2022-06-06 07:44] LABS: BASOPHILS # (AUTO) 0.1 K/uL (0.00-0.22); EOSINOPHILS # (AUTO) 0.3 K/uL (0-0.4); EOSINOPHILS % (AUTO) 4.6 % (0.0-4.0); HEMATOCRIT 30.2 % (36-48); HEMOGLOBIN 9.2 g/dL (12.0-16.0); LYMPHOCYTES # (AUTO) 1.1 K/uL (2.5-16.5); LYMPHOCYTES % (AUTO) 18.7 % (20.5-51.1); MEAN CORPUSCULAR HEMOGLOBIN 27 pg (27-31); MEAN CORPUSCULAR HGB CONC 31 g/dL (33-37); MEAN CORPUSCULAR VOLUME 87.5 fL (80-94); MONOCYTES # (AUTO) 0.5 K/uL (0.8-1.0); MONOCYTES % (AUTO) 9.7 % (1.7-9.3); NEUTROPHILS # (AUTO) 3.7 K/uL (1.8-7.7); PLATELET COUNT (AUTO) 198 K/uL (140-450); RED BLOOD CELL COUNT(AUTO) 3.45 MIL/uL (4.20-5.40); RED CELL DISTRIBUTION WIDTH 21.1 % (11.6-13.7); WHITE BLOOD COUNT (AUTO) 5.7 K/uL (4.8-10.8)
[2022-06-06 08:00] VITALS: BP 142/55
[2022-06-06] MEDS: MUPIROCIN CA NASAL 2% 1GM TUBE NS SCH (08:29)
[2022-06-06] MEDS: CHLORHEXADINE GLUC 2% CLOTH TP SCH (08:29)
[2022-06-06] MEDS: DOCUSATE SODIUM 100 MG GELCAP PO SCH (08:34)
[2022-06-06] MEDS: FERROUS SULFATE 325 MG TABEC PO SCH (08:35)
[2022-06-06] MEDS: carvediloL 12.5 MG TAB PO SCH (08:35)
[2022-06-06] MEDS: ASCORBIC ACID 500 MG TAB PO SCH (08:35)
[2022-06-06] MEDS: GABAPENTIN 300 MG CAP PO SCH (08:35)
[2022-06-06] MEDS: ESCITALOPRAM 20 MG TAB PO SCH (08:37)
[2022-06-06 09:56] LABS: SODIUM SERUM 145 mmol/L (136-145)
[2022-06-06 09:57] LABS: CHLORIDE 108 mmol/L (98-107)
[2022-06-06 09:58] LABS: GLUCOSE 87 mg/dL (74-106); UREA NITROGEN, BLOOD 19 mg/dL (7-18)
[2022-06-06 12:00] VITALS: BP 141/64
--- NOTE | 2022-06-06 14:46 | NUR ---
Contacted [facility] SNF x 2 to give report but no one is answering. Will call back again.
--- NOTE | 2022-06-06 15:06 | NUR ---
DC PLANNING: PATIENT GOT ACCEPTED AT [facility] SIDE CAN GO TO ROOM 104 A #TO GIVE REPORT [phone] ROMAN FROM [facility] ARRANGED TRANSPORT RADIO TIME BUYER TIME 5:30 NOTIFIED RICKY CHARGE NURSE. CM TO FOLLOW
[2022-06-06 16:00] VITALS: BP 139/64
--- NOTE | 2022-06-06 16:48 | NUR ---
Report given to Florence/RN at
--- NOTE | 2022-06-06 17:54 | NUR ---
Pt. DC to SNF in stable condition. Afebrile. VS WNL. Picked up by ambulance with 2EMT at bedside.
== END 2022-06-06 17:50 | DRG 640 ==
LOC: MED 23:37 → MTU 06-03 04:57
PROVIDERS: ADMIT Family Medicine; ATTEND Family Medicine
DX: E86.0 Dehydration (principal); N17.0 Acute kidney failure with tubular necrosis; E44.1 Mild protein-calorie malnutrition; N39.0 Urinary tract infection, site not specified; Z68.42 Body mass index [BMI] 45.0-49.9, adult; R55 Syncope and collapse; Z20.822 Contact with and (suspected) exposure to COVID-19; S09.90XA Unspecified injury of head, initial encounter; X58.XXXA Exposure to other specified factors, initial encounter; I11.0 Hypertensive heart disease with heart failure; I50.9 Heart failure, unspecified; E03.9 Hypothyroidism, unspecified; E83.51 Hypocalcemia; D64.9 Anemia, unspecified; R74.01 Elevation of levels of liver transaminase levels; Y93.89 Activity, other specified; Y92.89 Other specified places as the place of occurrence of the external cause; Y99.8 Other external cause status
CPT/HCPCS: 36415; 70450; 71045; 80048; 80053; 81001; 83605; 83735; 85025; 87040; 87081; 87086; 93005; 93880; 96360; 96361; 97110; 97116; 97163-GP; 97530; 99285; J0696; J2270; J2405; J7030; J7060; Q0092

== ENCOUNTER 2022-07-14 10:56 | Emergency (ER) | payer OTHER ==
[~2022-07-14] VITALS: Ht 149.9 cm; Wt 113.4 kg
[~2022-07-14 10:56] MED LIST changes: -ACET-9535 PO; -DULO60EC1 PO; -FURO-572 PO; -IMO2 PO; -IV Rocephin IV; -IV Zosyn IV; -LORA10TA19 PO; +MECL-303 PO
[2022-07-14 10:59] VITALS: BP 133/68
[2022-07-14 12:08] LABS: ALBUMIN 3.5 g/dL (3.4-5.0); ASPARTATE AMINOTRANSFERASE 12 U/L (15-37); CARBON DIOXIDE 31.9 mmol/L (21-32); CHLORIDE 107 mmol/L (98-107); CREATININE 1.2 mg/dL (0.6-1.3); GLUCOSE 87 mg/dL (74-106); LIPASE 96 U/L (73-393); POTASSIUM 4.9 mmol/L (3.5-5.1); SODIUM SERUM 143 mmol/L (136-145); TOTAL BILIRUBIN 0.4 mg/dL (0.0-1.0); UREA NITROGEN, BLOOD 31 mg/dL (7-18)
[2022-07-14 12:40] LABS: BASOPHILS # (AUTO) 0.1 K/uL (0.00-0.22); BASOPHILS % (AUTO) 0.9 % (0.0-2.0); EOSINOPHILS # (AUTO) 0.3 K/uL (0-0.4); EOSINOPHILS % (AUTO) 4.2 % (0.0-4.0); HEMATOCRIT 26.9 % (36-48); HEMOGLOBIN 8.4 g/dL (12.0-16.0); LYMPHOCYTES # (AUTO) 1.3 K/uL (2.5-16.5); LYMPHOCYTES % (AUTO) 17.9 % (20.5-51.1); MEAN CORPUSCULAR HEMOGLOBIN 26 pg (27-31); MEAN CORPUSCULAR HGB CONC 31 g/dL (33-37); MEAN CORPUSCULAR VOLUME 81.9 fL (80-94); MONOCYTES # (AUTO) 0.8 K/uL (0.8-1.0); MONOCYTES % (AUTO) 10.7 % (1.7-9.3); NEUTROPHILS # (AUTO) 4.9 K/uL (1.8-7.7); NEUTROPHILS % (AUTO) 66.3 % (42.2-75.2); PLATELET COUNT (AUTO) 241 K/uL (140-450); RED BLOOD CELL COUNT(AUTO) 3.29 MIL/uL (4.20-5.40); RED CELL DISTRIBUTION WIDTH 18.6 % (11.6-13.7); WHITE BLOOD COUNT (AUTO) 7.5 K/uL (4.8-10.8)
--- NOTE | 2022-07-14 13:23 | NUR ---
pt ambulated to bathroom at this time
[2022-07-14] MEDS ORDERED: ACET-5629 PO (15:34)
[2022-07-14] MEDS ORDERED: oxyCODONE/APAP 5/325 MG 1 TAB TAB PO ONE (15:35)
[2022-07-14 16:51] VITALS: BP 135/70
--- NOTE | 2022-07-14 16:51 | NUR ---
Patient discharged with v/s stable. Written and verbal after care instructions FOR CHOLECYSTITIS given and explained. Patient alert, oriented and verbalized understanding of instructions. Ambulatory with to car. All questions addressed prior to discharge. ID band removed. Patient advised to follow up with PMD. Rx of OXYCODONE given. Opportunity to ask questions provided and answered.
== END 2022-07-14 16:51 ==
LOC: MED 10:56
DX: I88.0 Nonspecific mesenteric lymphadenitis (principal); L03.311 Cellulitis of abdominal wall; I10 Essential (primary) hypertension; I50.9 Heart failure, unspecified; Z79.899 Other long term (current) drug therapy
CPT/HCPCS: 36415; 71045; 74176; 76705; 80053; 83690; 84484; 85025; 93005; 99285; Q0092

== ENCOUNTER 2022-11-12 13:19 | Emergency (ER) | payer OTHER ==
[~2022-11-12] VITALS: Ht 157.5 cm; Wt 95.3 kg
[~2022-11-12 13:19] MED LIST changes: +ACET-5629 PO
[2022-11-12 13:23] VITALS: BP 103/34
--- NOTE | 2022-11-12 13:35 | NUR ---
PT BIBA, PLACED IN WHEELCHAIR
[2022-11-12 15:04] LABS: BASOPHILS # (AUTO) 0.1 K/uL (0.00-0.22); BASOPHILS % (AUTO) 0.9 % (0.0-2.0); EOSINOPHILS # (AUTO) 0.3 K/uL (0-0.4); EOSINOPHILS % (AUTO) 3.6 % (0.0-4.0); HEMATOCRIT 28.2 % (36-48); HEMOGLOBIN 8.8 g/dL (12.0-16.0); LYMPHOCYTES # (AUTO) 1.1 K/uL (2.5-16.5); LYMPHOCYTES % (AUTO) 13.5 % (20.5-51.1); MEAN CORPUSCULAR HEMOGLOBIN 26 pg (27-31); MEAN CORPUSCULAR HGB CONC 31 g/dL (33-37); MEAN CORPUSCULAR VOLUME 82.6 fL (80-94); MONOCYTES # (AUTO) 0.7 K/uL (0.8-1.0); MONOCYTES % (AUTO) 8.5 % (1.7-9.3); NEUTROPHILS % (AUTO) 73.5 % (42.2-75.2); PLATELET COUNT (AUTO) 265 K/uL (140-450); RED BLOOD CELL COUNT(AUTO) 3.42 MIL/uL (4.20-5.40); RED CELL DISTRIBUTION WIDTH 20.3 % (11.6-13.7); WHITE BLOOD COUNT (AUTO) 8.2 K/uL (4.8-10.8)
[2022-11-12 15:04] LABS: APPEARANCE,URINE CLEAR (CLEAR); BILIRUBIN,URINE NEGATIVE (NEGATIVE); BLOOD, URINE NEGATIVE (NEGATIVE); COLOR,URINE YELLOW (YELLOW); LEUKOCYTE ESTERASE ,URINE NEGATIVE (NEGATIVE); NITRITE, URINE NEGATIVE (NEGATIVE); UGLUCOSE NEGATIVE (NEGATIVE)
[2022-11-12 15:26] LABS: ALBUMIN 3.3 g/dL (3.4-5.0); ANION GAP 10.7 (8-16); ASPARTATE AMINOTRANSFERASE 21 U/L (15-37); CARBON DIOXIDE 31.6 mmol/L (21-32); CHLORIDE 104 mmol/L (98-107); CREATININE 1.4 mg/dL (0.6-1.3); GLUCOSE 107 mg/dL (74-106); LIPASE 161 U/L (73-393); POTASSIUM 4.3 mmol/L (3.5-5.1); SODIUM SERUM 142 mmol/L (136-145); TOTAL BILIRUBIN 0.3 mg/dL (0.0-1.0); UREA NITROGEN, BLOOD 27 mg/dL (7-18)
--- NOTE | 2022-11-12 16:42 | NUR ---
here for abd mass, pain 08/18, ct done, will be dc home
--- NOTE | 2022-11-12 16:51 | NUR ---
Patient discharged with v/s stable. Written and verbal after care instructions given and explained. Patient verbalized understanding. Wheel Chair Assisted with steady gait. All questions addressed prior to discharge. Advised to follow up with PMD. copies of ct report given
[2022-11-12 16:52] VITALS: BP 131/81
== END 2022-11-12 16:52 | disposition home or self-care (01) ==
LOC: MED 13:19
DX: R19.03 Right lower quadrant abdominal swelling, mass and lump (principal); M79.89 Other specified soft tissue disorders; D64.9 Anemia, unspecified; J44.9 Chronic obstructive pulmonary disease, unspecified; E03.9 Hypothyroidism, unspecified; I10 Essential (primary) hypertension; I25.10 Atherosclerotic heart disease of native coronary artery without angina pectoris; Z79.899 Other long term (current) drug therapy
CPT/HCPCS: 36415; 80053; 81003; 83690; 85025; 93971; 99284

== ENCOUNTER 2022-12-13 18:35 | Inpatient (IN) | payer OTHER ==
[~2022-12-13] VITALS: Ht 160 cm; Wt 99.8 kg
[2022-12-13] MEDS: NACL 0.9% 1,000 ML IV SCH
--- NOTE | 2022-12-13 18:35 | NUR ---
PT PLACED IN BED 01
[2022-12-13 18:45] VITALS: BP 134/68
[2022-12-13] MEDS ORDERED: MORPHINE SULFATE 4 MG/ML SYR IVP ONE ×2 (19:05→19:45)
[2022-12-13] MEDS ORDERED: ONDANSETRON 4 MG/2 ML VIAL IVP ONE (19:05)
--- NOTE | 2022-12-13 19:30 | NUR ---
RECEIVED PT IN BED 1 MOANING AND CALLING OUT. PT WAS BIBA WITH C/O LEFT HIP PAIN. DENIES TRAUMA. PT WAS SEEN HERE 3 WEEKS AGO AND WAS DX WITH MASS IN THIS AREA. PT ALSO STATES SHE HAS H/O SHINGLES AND HAS HAD SLIGHT BREAKOUT STARTING 3 DAYS AGO BUT DENIES PAIN AT THIS TIME AT SHINGLES SITE. 22G SL IN PLACE TO LEFT HAND. C/O SEVERE PAIN /, MEDICATED ORDERED WITH MINIMAL RELIEF
--- NOTE | 2022-12-13 19:45 | NUR ---
REMAINS IN 10/10 PAIN, ADDITIONAL MORPHINE GIVEN ORDERED WITH SLIGHT RELIEF PAIN TO 8/10. ASSISTED WITH POSITIONING FOR COMFORT, CHANGED INTO GOWN. DR NELSON AT BEDSIDE FOR EXAM
--- NOTE | 2022-12-13 20:15 | NUR ---
US AT BEDSIDE
[2022-12-13 20:41] LABS: BASOPHILS % (AUTO) 0.6 % (0.0-2.0); EOSINOPHILS # (AUTO) 0.2 K/uL (0-0.4); EOSINOPHILS % (AUTO) 2.1 % (0.0-4.0); HEMATOCRIT 28.4 % (36-48); HEMOGLOBIN 8.9 g/dL (12.0-16.0); LYMPHOCYTES # (AUTO) 0.7 K/uL (2.5-16.5); LYMPHOCYTES % (AUTO) 9.4 % (20.5-51.1); MEAN CORPUSCULAR HEMOGLOBIN 25 pg (27-31); MEAN CORPUSCULAR HGB CONC 32 g/dL (33-37); MEAN CORPUSCULAR VOLUME 79.4 fL (80-94); MONOCYTES # (AUTO) 0.5 K/uL (0.8-1.0); MONOCYTES % (AUTO) 6.3 % (1.7-9.3); NEUTROPHILS # (AUTO) 6.5 K/uL (1.8-7.7); NEUTROPHILS % (AUTO) 81.6 % (42.2-75.2); PLATELET COUNT (AUTO) 258 K/uL (140-450); RED BLOOD CELL COUNT(AUTO) 3.57 MIL/uL (4.20-5.40); WHITE BLOOD COUNT (AUTO) 7.9 K/uL (4.8-10.8)
[2022-12-13 20:59] LABS: ALBUMIN 3.1 g/dL (3.4-5.0); ASPARTATE AMINOTRANSFERASE 20 U/L (15-37); CARBON DIOXIDE 29.8 mmol/L (21-32); CHLORIDE 102 mmol/L (98-107); CREATININE 1.2 mg/dL (0.6-1.3); GLUCOSE 122 mg/dL (74-106); POTASSIUM 3.8 mmol/L (3.5-5.1); SODIUM SERUM 139 mmol/L (136-145); TOTAL BILIRUBIN 0.2 mg/dL (0.0-1.0); UREA NITROGEN, BLOOD 25 mg/dL (7-18)
--- NOTE | 2022-12-13 21:07 | NUR ---
RESTING IN BED WITH EYES CLOSED, RESPIRATIONS REGULAR AND UNLABORED
[2022-12-13] MEDS ORDERED: LIDOCAINE 5% 1 EA PATCH TP ONE (21:25)
--- NOTE | 2022-12-13 21:40 | NUR ---
LILIAN SWAB OBTAINED AND SENT TO LAB
[2022-12-13] MEDS ORDERED: ZOLPIDEM 5 MG TAB PO PRN (22:15)
[2022-12-13] MEDS ORDERED: POTASSIUM CHLORIDE 10 MEQ TABER PO PRN (22:15)
[2022-12-13] MEDS ORDERED: ACETAMINOPHEN 325 MG TAB PO PRN (22:15)
[2022-12-13] MEDS ORDERED: guaiFENesin DM 200/20 MG-10 ML 10 ML UDC PO PRN (22:15)
[2022-12-13] MEDS ORDERED: DOCUSATE SODIUM 100 MG GELCAP PO PRN (22:15)
[2022-12-13 22:52] LABS: CHOL/HDL RATIO 3.4 (1-4.5); FREE T4 (FREE THYROXINE) 0.96 ng/dL (0.76-1.46); THYROID STIMULATING HORMONE 5.16 uIU/mL (0.34-3.74)
[2022-12-13 23:11] LABS: PROTHROMBIN TIME 10.2 secs (10.8-13.4)
--- NOTE | 2022-12-13 23:15 | NUR ---
TO CT VIA [facility]
[2022-12-13] MEDS: MORPHINE SULFATE 2 MG/ML SYR IVP PRN (23:49)
--- NOTE | 2022-12-14 02:00 | NUR ---
RESTING IN BED WITH EYES CLOSED, RESPIRATIONS REGULAR AND UNLABORED
--- NOTE | 2022-12-14 04:11 | NUR ---
AWAKE, C/O PAIN 04/17. ASSISTED ONTO BEDPAN TO VOID.
[2022-12-14] MEDS: MORPHINE SULFATE 2 MG/ML SYR IVP PRN ×2 (04:38→09:51)
--- NOTE | 2022-12-14 06:00 | NUR ---
RESTING QUIETLY WITH EYES CLOSED, RESPIRATIONS REGULAR AND UNLABORED
[2022-12-14 06:43] LABS: BASOPHILS % (AUTO) 0.6 % (0.0-2.0); EOSINOPHILS # (AUTO) 0.2 K/uL (0-0.4); EOSINOPHILS % (AUTO) 2.4 % (0.0-4.0); HEMATOCRIT 31.9 % (36-48); HEMOGLOBIN 9.7 g/dL (12.0-16.0); LYMPHOCYTES # (AUTO) 0.9 K/uL (2.5-16.5); LYMPHOCYTES % (AUTO) 11.4 % (20.5-51.1); MEAN CORPUSCULAR HEMOGLOBIN 24 pg (27-31); MEAN CORPUSCULAR HGB CONC 30 g/dL (33-37); MEAN CORPUSCULAR VOLUME 80.5 fL (80-94); MONOCYTES # (AUTO) 0.6 K/uL (0.8-1.0); MONOCYTES % (AUTO) 7.6 % (1.7-9.3); PLATELET COUNT (AUTO) 268 K/uL (140-450); RED BLOOD CELL COUNT(AUTO) 3.97 MIL/uL (4.20-5.40); RED CELL DISTRIBUTION WIDTH 19.5 % (11.6-13.7); WHITE BLOOD COUNT (AUTO) 7.7 K/uL (4.8-10.8)
[2022-12-14 07:06] LABS: ANION GAP 9.3 (8-16); CARBON DIOXIDE 31.8 mmol/L (21-32); CHLORIDE 104 mmol/L (98-107); CREATININE 1.1 mg/dL (0.6-1.3); GLUCOSE 99 mg/dL (74-106); POTASSIUM 4.1 mmol/L (3.5-5.1); SODIUM SERUM 141 mmol/L (136-145); UREA NITROGEN, BLOOD 20 mg/dL (7-18)
[2022-12-14] MEDS: LEVOTHYROXINE 0.112 MG TAB PO SCH (08:21)
--- NOTE | 2022-12-14 08:28 | NUR ---
Patient will be admitted to care of DR NOEL. Admited to [facility]. Will go to room 121A. Belongings list completed. Report to GENA HAMILTON.
--- NOTE | 2022-12-14 08:49 | NUR ---
PATIENT HAS BEEN SCREENED AND CATEGORIZED LOW NUTRITION RISK. PATIENT WILL BE SEEN WITHIN 7 DAYS OF ADMISSION. 12/20/[address]
[2022-12-14] MEDS ORDERED: GABAPENTIN 300 MG CAP PO SCH (09:00)
--- NOTE | 2022-12-14 09:11 | NUR ---
ROUNDED ON PT. PT IS ON 2L NC AND SATURATION IS IN [id number]. TITRATED TO RA PT TOLERATING FINE. NO SOB OE DISTRESS NOTED. WILL CONTINUE TO MONITOR.
[2022-12-14] MEDS: FERROUS SULFATE 325 MG TABEC PO SCH (09:31)
[2022-12-14] MEDS: PANTOPRAZOLE 40 MG TABEC PO SCH (09:32)
[2022-12-14] MEDS: GABAPENTIN 300 MG CAP PO SCH ×2 (09:32→22:41)
[2022-12-14] MEDS: carvediloL 12.5 MG TAB PO SCH ×2 (09:32→22:40)
[2022-12-14] MEDS: ESCITALOPRAM 20 MG TAB PO SCH (09:32)
[2022-12-14 12:00] VITALS: BP 135/89
[2022-12-14] MEDS: NACL 0.9% 1,000 ML IV SCH (15:51)
[2022-12-14] MEDS: MORPHINE SULFATE 4 MG/ML SYR IVP PRN ×3 (15:56→23:10)
[2022-12-14 16:00] VITALS: BP 143/63
--- NOTE | 2022-12-14 19:46 | NUR ---
GAVE REPORT TO THE NIGHT NURSE PT STABLE. [id number]
[2022-12-14 20:00] VITALS: BP 115/59
--- NOTE | 2022-12-14 23:03 | NUR ---
PT HIT THE CALL LIGHT , PT C/O PAT SHE RATES THE PAIN 10 , BP 133/77 , AR 89 , RR 20 , O2 SAT 96 % - WILL MEDICATE , CALL LIGHT WITHIN REACH .
[2022-12-15] VITALS: BP 130/77
--- NOTE | 2022-12-15 | NUR ---
ROUNDS , NO S/SX OF ACUTE DISTRESS NOTED AT THIS TIME , WILL CONT. TO MONITOR
--- NOTE | 2022-12-15 02:30 | NUR ---
C/O PAIN , BP 140/ 92 , WV 84 , RR 18 , O2 SAT 96 % - WILL MEDICATE SHE RATES THE PAIN 9 /10 . PUT PT ON PUREWICK - FOR URINE COLLECTION , FOR URINE PROFILE - PER LAB IT'S OK TO COLLECT URINE THRU PUREWICK . WOUND PHOTO ON LEFT BUTT DONE , PUT DRESSING ON IT , PER PT SHE HAD HX OF SHINGLES YEARS AGO , AND SHE DONT KNOW IF THAT WOUND IS SHINGLES TOO - INFORM CHARGE NURSE ERIBERTO ABOUT IT - WILL ENDORSE TO AM NURSE .
[2022-12-15] MEDS: MORPHINE SULFATE 4 MG/ML SYR IVP PRN ×7 (02:35→23:07)
[2022-12-15] MEDS: NACL 0.9% 1,000 ML IV SCH (03:08)
--- NOTE | 2022-12-15 04:00 | NUR ---
ROUNDS , SLEEPING , BUT EASILY AROUSABLE BY SOUNDS , WILL CONT. TO MONITOR
[2022-12-15 05:20] LABS: ANION GAP 7.5 (8-16); CARBON DIOXIDE 33.2 mmol/L (21-32); CHLORIDE 106 mmol/L (98-107); CREATININE 1.1 mg/dL (0.6-1.3); GLUCOSE 105 mg/dL (74-106); POTASSIUM 4.7 mmol/L (3.5-5.1); SODIUM SERUM 142 mmol/L (136-145); UREA NITROGEN, BLOOD 18 mg/dL (7-18)
[2022-12-15 05:23] LABS: BASOPHILS # (AUTO) 0.1 K/uL (0.00-0.22); BASOPHILS % (AUTO) 0.5 % (0.0-2.0); EOSINOPHILS # (AUTO) 0.3 K/uL (0-0.4); EOSINOPHILS % (AUTO) 3.1 % (0.0-4.0); HEMATOCRIT 30.1 % (36-48); HEMOGLOBIN 9.2 g/dL (12.0-16.0); LYMPHOCYTES # (AUTO) 0.7 K/uL (2.5-16.5); MEAN CORPUSCULAR HEMOGLOBIN 25 pg (27-31); MEAN CORPUSCULAR HGB CONC 31 g/dL (33-37); MONOCYTES # (AUTO) 0.7 K/uL (0.8-1.0); MONOCYTES % (AUTO) 7.1 % (1.7-9.3); NEUTROPHILS # (AUTO) 8.4 K/uL (1.8-7.7); NEUTROPHILS % (AUTO) 82.3 % (42.2-75.2); PLATELET COUNT (AUTO) 263 K/uL (140-450); RED BLOOD CELL COUNT(AUTO) 3.72 MIL/uL (4.20-5.40); RED CELL DISTRIBUTION WIDTH 19.7 % (11.6-13.7); WHITE BLOOD COUNT (AUTO) 10.2 K/uL (4.8-10.8)
[2022-12-15 05:24] LABS: APPEARANCE,URINE CLEAR (CLEAR); BILIRUBIN,URINE NEGATIVE (NEGATIVE); BLOOD, URINE NEGATIVE (NEGATIVE); COLOR,URINE YELLOW (YELLOW); LEUKOCYTE ESTERASE ,URINE NEGATIVE (NEGATIVE); NITRITE, URINE NEGATIVE (NEGATIVE); UGLUCOSE NEGATIVE (NEGATIVE)
[2022-12-15] MEDS: LEVOTHYROXINE 0.112 MG TAB PO SCH (07:22)
--- NOTE | 2022-12-15 07:28 | NUR ---
ENDORSED PT FOR CONT. OF CARE . I ENDORSE TO AM NURSE TO REMIND DR. NOEL ABOUT THE SUPERFICIAL WOUND OF THE PT . THERESA I ALREADY INFORMED THIS TO OUR CHARGE NURSE ERIBERTO LAST NIGHT , BUT ERIBERTO DID NOT RECOMMENDED ME TO PUT PT . ON ISOLATION , SHE SAID LET THE MD SEE/ ASSESS THE WOUND FIRST . AM NURSE VERBALIZES UNDERSTANDING .
--- NOTE | 2022-12-15 07:29 | NUR ---
RECEIVED REPORT FROM CLASSICS PROFESSOR NURSE FOR CONTINUITY OF CARE. PT IS ASLEEP AWAKEN BY NAME, NC 2L, NO SIGNS OF DISTRESS. CALL LIGHT WITHIN REACH.
[2022-12-15 08:07] LABS: T4 (THYROXINE) 8.7 ug/dL (4.5-12.0)
[2022-12-15] MEDS: FERROUS SULFATE 325 MG TABEC PO SCH (08:54)
[2022-12-15] MEDS: carvediloL 12.5 MG TAB PO SCH ×2 (08:55→20:06)
[2022-12-15] MEDS: GABAPENTIN 300 MG CAP PO SCH ×2 (08:55→20:06)
[2022-12-15] MEDS: PANTOPRAZOLE 40 MG TABEC PO SCH (08:56)
[2022-12-15] MEDS: ESCITALOPRAM 20 MG TAB PO SCH (08:57)
--- NOTE | 2022-12-15 09:02 | NUR ---
FNS CONSULT ON WOUNDS/PRESSURE ULCER AND GENERAL HEALTHY EATING RECEIVED ON 12/15/22 Addendum: 12/15/22 at [address] DUE TO RECEIVING A FNS CONSULT, PATIENT HAS BEEN CATEGORIZED HIGH RISK. PATIENT WILL BE SEEN WITHIN 1-2 DAYS FROM RECEIVING CONSULTATION. 12/15/22-12/16/[address]
--- NOTE | 2022-12-15 10:33 | NUR ---
WOUND CARE NOTE: SKIN ASSESSMENT DONE, PT ADMITTED WITH LOCALIZE VESICLES TO LEFT BUTTOCK, OPEN BLISTERING SKIN WITH FRICTION. PT IS AAX4. PER PT. HX OF SHINGLES WITH CHRONIC WOUND TO THAT AREA. PAIN 8/10. AREA MEASUREMENT 3X2.5CM SUPERFICIAL DEPTH, WOUND BED RED, MOIST, NO ODOR, TYESHA WOUND SKIN MOIST AND INTACT. LOWER ABDOMINAL FOLDS INTERTRIGO, SKIN MOIST, INTACT. PT. WITH LOW TESSIE SCALE AT MODERATE TO HIGH RISK, CONTINUE TO FOLLOW PRESSURE INJURY PREVENTION INTERVENTIONS. POC DISCUSSED WITH PT. PT. VERBALIZES UNDERSTANDING. POC DISCUSSED WITH PRIMARY RN CAT. RECOMMENDATIONS: -LEFT BUTTOCK CLEANSE WITH NS, APPLY OIL EMULSION DRESSING COVER WITH DRY DRESSING QD AND PRN IF SOILING -APPLY INTERDRY CLOTH TO LOWER ABDOMINAL FOLDS TODAY AND Q5 DAYS,CHANGE PRN IF SOILING -POSITIONING: TURN AND REPOSITION PATIENT Q 2H OR SOONER USE PILLOWS TO KEEP BONY PROMINENCES FROM DIRECT CONTACT WITH SURFACES USE REPOSITIONING WEDGES TO PROVIDE 30-DEGREE ANGLE FOR SIDE LYING POSITIONS OFFLOADING OR FOAM DRESSING TO ALL TUBING TO PREVENT MEDICAL DEVICES RELATED PRESSURE INJURY -RE-EVALUATING AND MANAGING INCONTINENCE MONITOR SKIN CONDITION DURING POSITION CHANGE DO NOT MASSAGE REDNESS, BONY PROMINENCES FREQUENT TYESHA-CARE AND PROVIDE BARRIER CREAMS PRN IF SOILING MOISTURE CONTROL BY PUREWICK AND ABSORBENT PAD TO WICK AND HOLD MOISTURE KEEP SKIN DRY AND PROTECT FROM FRICTION -MANAGE FRICTION/SHEAR/MOBILITY KEEP HOB AT THE LOWEST LEVEL OF ELEVATION NO MORE THAN 30 DEGREE UNLESS OTHERWISE CONTRAINDICATED USE LIFT SHEET OR TRANSFER DEVICE TO MOVE PATIENT AND PREVENT LATERAL SHEER. PROTECT HEELS, ELBOWS BONY PROMINENCES WITH SKIN BERRIES OR FOAM DRESSING IF EXPOSED TO FRICTION OFFLOAD BILATERAL HEELS BY PLACING PILLOWS UNDER CALVES AT ALL TIMES, UNLESS OTHERWISE CONTRAINDICATED -PRESSURE REDISTRIBUTION SURFACE THERAPY LEFTY ISOFLEX MATTRESS -NUTRITION: PLEASE FOLLOW RD RECOMMENDATIONS AND OFFER NUTRITION SUPPLEMENTS IF ORDERED. PLEASE CONTACT WOUND CARE NURSE FOR ANY QUESTION AND CHANGE OF WOUND CONDITION.
[2022-12-15] MEDS: ACYCLOVIR 800 MG TAB PO SCH ×4 (11:05→20:06)
[2022-12-15] MEDS ORDERED: NON ADHERENT DRESSING TP PRN (12:40)
[2022-12-15] MEDS ORDERED: INTERDRY CLOTH TP PRN (12:40)
[2022-12-15] MEDS: SUMAtriptan succinate 50 MG TAB PO PRN (12:43)
[2022-12-15] MEDS: NON ADHERENT DRESSING TP SCH (13:00)
[2022-12-15] MEDS ORDERED: INTERDRY CLOTH TP SCH (13:40)
--- NOTE | 2022-12-15 13:44 | NUR ---
DC PLANNIN YRS OLD FEMALE PATIENT WAS ADMITTED FROM [facility] (ASSISTED LIVING) WITH A DX OF INTRACTABLE BACK PAIN. PATIENT HAS A HX OF CHF, HTN, HYPOTHYROIDISM, ANEMIA COPD, MIGRAINES, INTRA ABDOMINAL MASS AND HIP PAIN. US VENOUS LEFT LOWER EXT SHOWED NO DVT. XR BILATERAL HIP NO FRACTURE. LUMBAR SPINE NO ACUTE FRACTURE. RAPID COVID TEST NEGATIVE. ADMINISTERED IVF, IV MORPHINE FOR PAIN AND CONTINUED HOME MEDS. ORDERED PT EVALUATION. DC PLAN TO RETURN TO [facility] POSSIBLE TO THE ASSISTED LIVING. CM CALLED [facility] SPOKE WITH MARJORIE TUTTLE IF MD RECOMMENDS TO THE [facility] SIDE . PATIENT CAN GO TO THE [facility] SIDE. CM TO FOLLOW Addendum: 12/18/22 at 1532 by Louise Pascal RN DC PLANNING: PATIENT GOT ACCEPTED AT [facility] AT THE SNF SIDE, PER ROMAN CAN GO TO ROOM 220A. DC YARDER OPERATOR TO ARRANGE TRANSPORT. CM TO FOLLOW Addendum: 12/18/22 at 1550 by KRISH GRIFFIN CM SPOKE WITH FREYA AT [facility] LOCATED AT [address] [place] [address] PATIENT WILL BE GOING TO ROOM 220-B UNDER DR DRAPER. SNF AUTH#[id number] AND TRANSPORTATION AUTH#[id number] GIVEN BY REGGIE AT [facility]. TRANSPORTATION ARRANGED WITH [employer] [employer] FOR A 2100 GROUNDS MAINTENANCE WORKER TIME. NURSE VICKIE AWARE OF THE ABOVE INFORMATION AND CASANDRA PERSON AWARE OF THE ABOVE INFO.
--- NOTE | 2022-12-15 14:05 | NUR ---
12/15/22 RD INITIAL ASSESSMENT COMPLETED PLEASE REFER TO NUTRITION ASSESSMENT UNDER CARE ACTIVITY FOR ESTIMATED NUTRITIONAL NEEDS. 1.CONTINUE REGULAR DIET TOLERATED 2.RD RECOMMENDS LION BID FOR WOUNDS WHICH WILL PROVIDE 160KCALS AND 5 GRAMS OF PROTEIN. 3. RD TO FOLLOW-UP 7 DAYS, LOW RISK CRISTOFER DAMON, RD
--- NOTE | 2022-12-15 16:26 | NUR ---
P.T. NOTES P.T. EVAL COMPLETED; REFER TO EVAL FOR DETAILS.
--- NOTE | 2022-12-15 19:20 | NUR ---
ENDORSED TO RESPIRATORY THERAPY TECHNICIAN NURSE FOR CONTINUITY OF CARE. PT IS AWAKE AND STABLE, CALL LIGHT WITHIN REACH.
--- NOTE | 2022-12-15 19:30 | NUR ---
RECEIVED REPORT FROM DAY SHIFT RN FOR CONTINUITY OF CARE. PT IS AAOX4. RESTING IN BED. PT COMPLAINING OF LEFT HIP PAIN 10/. WILL GIVE PAIN MED WHEN READY. PT IS ON 2L NC SATING 96%. PT HAS PUREWICK ON. POC DISCUSSED. WILL CONTINUE TO MONITOR THE PT.
[2022-12-15 20:00] VITALS: BP 139/67
--- NOTE | 2022-12-15 21:32 | NUR ---
FADI THE NIECE OF THE PT CALLED REGARDING UPDATES OF THE PT. ALL QUESTIONS ANSWERED. SHE WILL CALL BACK TOMORROW FOR MORE INFORMATION.
[2022-12-15] MEDS: HYDROcodone/APAP 7.5/325 MG 1 TAB PO PRN (21:57)
[2022-12-16] MEDS: NACL 0.9% 1,000 ML IV SCH ×2 (00:15→16:55)
[2022-12-16 04:00] VITALS: BP 131/60
[2022-12-16 05:17] LABS: HEMATOCRIT 28.7 % (36-48); HEMOGLOBIN 8.9 g/dL (12.0-16.0); MEAN CORPUSCULAR HEMOGLOBIN 25 pg (27-31); MEAN CORPUSCULAR HGB CONC 31 g/dL (33-37); MEAN CORPUSCULAR VOLUME 80.6 fL (80-94); PLATELET COUNT (AUTO) 229 K/uL (140-450); RED BLOOD CELL COUNT(AUTO) 3.57 MIL/uL (4.20-5.40); RED CELL DISTRIBUTION WIDTH 19.7 % (11.6-13.7); WHITE BLOOD COUNT (AUTO) 8.5 K/uL (4.8-10.8)
[2022-12-16 05:31] LABS: ANION GAP 7.8 (8-16); CARBON DIOXIDE 31.5 mmol/L (21-32); CHLORIDE 106 mmol/L (98-107); CREATININE 1.1 mg/dL (0.6-1.3); GLUCOSE 85 mg/dL (74-106); POTASSIUM 4.3 mmol/L (3.5-5.1); SODIUM SERUM 141 mmol/L (136-145); UREA NITROGEN, BLOOD 17 mg/dL (7-18)
[2022-12-16] MEDS: LEVOTHYROXINE 0.112 MG TAB PO SCH (05:33)
[2022-12-16] MEDS: MORPHINE SULFATE 4 MG/ML SYR IVP PRN ×5 (05:33→20:02)
[2022-12-16 06:22] LABS: BASOPHILS % (MANUAL) 0 % (0-2); EOSINOPHILS % (MANUAL) 5 % (0-4); LYMPHOCYTES % (MANUAL) 14 % (20-46); MONOCYTES % (MANUAL) 9 % (5-12)
--- NOTE | 2022-12-16 07:07 | NUR ---
ENDORSED PT TO DAY SHIFT RN FOR CONTINUITY OF CARE. PT IS STABLE.
--- NOTE | 2022-12-16 07:10 | NUR ---
RECEIVED PATIENT FROM PM NURSE FOR CONTINUITY OF CARE. PATIENT IN CONTACT, AIRBORNE PRECAUTION FOR SUSPECTED SHINGLES.
[2022-12-16] MEDS: PANTOPRAZOLE 40 MG TABEC PO SCH (09:37)
[2022-12-16] MEDS: GABAPENTIN 300 MG CAP PO SCH ×2 (09:37→21:13)
[2022-12-16] MEDS: ACYCLOVIR 800 MG TAB PO SCH ×4 (09:37→21:14)
[2022-12-16] MEDS: ESCITALOPRAM 20 MG TAB PO SCH (09:38)
[2022-12-16] MEDS: carvediloL 12.5 MG TAB PO SCH ×2 (09:39→21:14)
[2022-12-16] MEDS: FERROUS SULFATE 325 MG TABEC PO SCH (09:39)
[2022-12-16] MEDS: NON ADHERENT DRESSING TP SCH (13:00)
--- NOTE | 2022-12-16 13:30 | NUR ---
LAB CALLED AND REPORTED PATIENT POSITIVE FOR MRSA.
--- NOTE | 2022-12-16 15:00 | NUR ---
PATIENT PAIN SCORE 9/10. ADMINISTERED 1MG MORPHINE AT 1500. WILL REASSESS AT 1600H
[2022-12-16 17:57] VITALS: BP 138/67
--- NOTE | 2022-12-16 19:20 | NUR ---
ENDORSED PATIENT TO PM NURSE FOR CONTINUATION OF CARE.
--- NOTE | 2022-12-16 19:30 | NUR ---
RECEIVED REPORT FROM DAY SHIFT RN FOR CONTINUITY OF CARE. PT IS AAOX4. RESTING IN BED. PT IS ON 2L NC SATING 94%. PT COMPLAINING OF LEFT HIP PAIN 10/10. PT HAS NO IV. NEW IV WILL BE INSERTED AND PAIN MED WILL BE ADMINISTER. PT HAS PUREWICK ON. POC DISCUSSED. WILL CONTINUE TO MONITOR THE PT.
[2022-12-16 20:00] VITALS: BP 146/64
--- NOTE | 2022-12-16 20:05 | NUR ---
NEW IV INSERTED ON RIGHT WRIST 24 GAUGE. SCHEDULE MORPHINE WAS GIVE FOR 10/10 PAIN ON LET HIP.
[2022-12-16] MEDS: SUMAtriptan succinate 50 MG TAB PO PRN (21:13)
[2022-12-16] MEDS: HYDROcodone/APAP 7.5/325 MG 1 TAB PO PRN (21:13)
[2022-12-16] MEDS: MUPIROCIN CA NASAL 2% 1GM TUBE NS SCH (21:14)
[2022-12-16] MEDS: CHLORHEXADINE GLUC 2% CLOTH TP SCH (21:15)
[2022-12-17] MEDS: MORPHINE SULFATE 4 MG/ML SYR IVP PRN ×6 (02:14→22:19)
--- NOTE | 2022-12-17 02:14 | NUR ---
PT CALLED COMPLAINING OF HIP PAIN 04/17. MORPHINE WAS GIVEN. NO OTHER COMPLAINS. WILL CONTINUE TO MONITOR THE PT.
[2022-12-17 04:00] VITALS: BP 133/67
[2022-12-17] MEDS: LEVOTHYROXINE 0.112 MG TAB PO SCH (05:39)
[2022-12-17] MEDS: ONDANSETRON 4 MG/2 ML VIAL IM/IVP PRN ×2 (05:57→09:41)
[2022-12-17 06:58] LABS: ANION GAP 9.3 (8-16); CHLORIDE 107 mmol/L (98-107); CREATININE 0.9 mg/dL (0.6-1.3); GLUCOSE 85 mg/dL (74-106); POTASSIUM 4.3 mmol/L (3.5-5.1); SODIUM SERUM 143 mmol/L (136-145); UREA NITROGEN, BLOOD 16 mg/dL (7-18)
[2022-12-17 07:04] LABS: BASOPHILS # (AUTO) 0.1 K/uL (0.00-0.22); BASOPHILS % (AUTO) 0.7 % (0.0-2.0); EOSINOPHILS # (AUTO) 0.3 K/uL (0-0.4); EOSINOPHILS % (AUTO) 3.6 % (0.0-4.0); HEMATOCRIT 29.5 % (36-48); HEMOGLOBIN 9.2 g/dL (12.0-16.0); LYMPHOCYTES % (AUTO) 12.4 % (20.5-51.1); MEAN CORPUSCULAR HEMOGLOBIN 25 pg (27-31); MEAN CORPUSCULAR HGB CONC 31 g/dL (33-37); MEAN CORPUSCULAR VOLUME 80.4 fL (80-94); MONOCYTES # (AUTO) 0.7 K/uL (0.8-1.0); NEUTROPHILS # (AUTO) 6.1 K/uL (1.8-7.7); NEUTROPHILS % (AUTO) 74.3 % (42.2-75.2); PLATELET COUNT (AUTO) 229 K/uL (140-450); RED BLOOD CELL COUNT(AUTO) 3.67 MIL/uL (4.20-5.40); RED CELL DISTRIBUTION WIDTH 19.4 % (11.6-13.7); WHITE BLOOD COUNT (AUTO) 8.2 K/uL (4.8-10.8)
--- NOTE | 2022-12-17 07:07 | NUR ---
ENDORSED PT TO DAY SHIFT RN FOR CONTINUITY OF CARE. PT IS STABLE.
--- NOTE | 2022-12-17 07:15 | NUR ---
RECEIVED PATIENT FROM PM NURSE FOR CONTINUATION OF CARE. PATIENT SEEN AWAKE. CONTACT PRECAUTION OBSERVED. PATIENT CARE CONTINUED.
[2022-12-17] MEDS: NACL 0.9% 1,000 ML IV SCH (09:35)
[2022-12-17] MEDS: ACYCLOVIR 800 MG TAB PO SCH ×4 (09:42→21:10)
[2022-12-17] MEDS: FERROUS SULFATE 325 MG TABEC PO SCH (09:42)
[2022-12-17] MEDS: carvediloL 12.5 MG TAB PO SCH ×2 (09:43→21:11)
[2022-12-17] MEDS: PANTOPRAZOLE 40 MG TABEC PO SCH (09:44)
[2022-12-17] MEDS: GABAPENTIN 300 MG CAP PO SCH ×2 (09:44→21:11)
[2022-12-17] MEDS: ESCITALOPRAM 20 MG TAB PO SCH (09:44)
[2022-12-17] MEDS: NON ADHERENT DRESSING TP SCH (13:00)
[2022-12-17 18:22] VITALS: BP 128/54
--- NOTE | 2022-12-17 19:20 | NUR ---
PATIENT STABLE. GIVEN MORPHINE PER REQUEST DUE TO PAIN. ENDORSED PATIENT TO PM NURSE FOR CONTINUATION OF CARE.
--- NOTE | 2022-12-17 21:10 | NUR ---
ALL SCHEDULED MEDICATIONS DUE ADMINISTERED. PATIENT RESTING COMFORTABLY IN BED. NO S/S OF RESPIRATORY DISTRESS, ON O2 AT 2L NC SATING 97%. IVF INFUSING WELL ORDERED. CALL LIGHT WITHIN REACH.
[2022-12-17] MEDS: MUPIROCIN CA NASAL 2% 1GM TUBE NS SCH (21:11)
[2022-12-17] MEDS: CHLORHEXADINE GLUC 2% CLOTH TP SCH (21:12)
[2022-12-17] MEDS: SUMAtriptan succinate 50 MG TAB PO PRN (23:34)
--- NOTE | 2022-12-17 23:34 | NUR ---
PATIENT REQUESTED MEDICATION FOR MIGRAINE, ADMINISTERED ORDERED.
[2022-12-18] MEDS: NACL 0.9% 1,000 ML IV SCH ×2 (02:15→09:30)
[2022-12-18] MEDS: MORPHINE SULFATE 4 MG/ML SYR IVP PRN ×3 (02:50→14:53)
[2022-12-18 04:00] VITALS: BP 126/58
[2022-12-18 05:10] LABS: BASOPHILS # (AUTO) 0.1 K/uL (0.00-0.22); BASOPHILS % (AUTO) 0.7 % (0.0-2.0); EOSINOPHILS # (AUTO) 0.4 K/uL (0-0.4); EOSINOPHILS % (AUTO) 3.5 % (0.0-4.0); HEMOGLOBIN 9.5 g/dL (12.0-16.0); LYMPHOCYTES % (AUTO) 9.3 % (20.5-51.1); MEAN CORPUSCULAR HEMOGLOBIN 25 pg (27-31); MEAN CORPUSCULAR HGB CONC 31 g/dL (33-37); MEAN CORPUSCULAR VOLUME 80.8 fL (80-94); MONOCYTES # (AUTO) 0.8 K/uL (0.8-1.0); MONOCYTES % (AUTO) 7.6 % (1.7-9.3); NEUTROPHILS # (AUTO) 8.3 K/uL (1.8-7.7); NEUTROPHILS % (AUTO) 78.9 % (42.2-75.2); PLATELET COUNT (AUTO) 276 K/uL (140-450); RED BLOOD CELL COUNT(AUTO) 3.83 MIL/uL (4.20-5.40); RED CELL DISTRIBUTION WIDTH 19.2 % (11.6-13.7); WHITE BLOOD COUNT (AUTO) 10.5 K/uL (4.8-10.8)
[2022-12-18 06:12] LABS: ANION GAP 10.5 (8-16); CARBON DIOXIDE 28.9 mmol/L (21-32); CHLORIDE 107 mmol/L (98-107); CREATININE 0.9 mg/dL (0.6-1.3); GLUCOSE 97 mg/dL (74-106); POTASSIUM 4.4 mmol/L (3.5-5.1); SODIUM SERUM 142 mmol/L (136-145); UREA NITROGEN, BLOOD 19 mg/dL (7-18)
[2022-12-18] MEDS: LEVOTHYROXINE 0.112 MG TAB PO SCH (06:51)
--- NOTE | 2022-12-18 07:15 | NUR ---
GAVE BEDSIDE REPORT TO AM NURSE FOR CONTINUITY OF CARE. PATIENT STABLE.
--- NOTE | 2022-12-18 07:20 | NUR ---
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 22 WITH NS INFUSING AT 60ML/HR, NO SIGN OF DISTRESS NOTED AND WILL CONTINUE TO MONITOR PT.
[2022-12-18 08:00] VITALS: BP 138/55
[2022-12-18] MEDS: ACYCLOVIR 800 MG TAB PO SCH ×4 (09:02→20:20)
[2022-12-18] MEDS: ESCITALOPRAM 20 MG TAB PO SCH (09:03)
[2022-12-18] MEDS: carvediloL 12.5 MG TAB PO SCH ×2 (09:03→20:21)
[2022-12-18] MEDS: FERROUS SULFATE 325 MG TABEC PO SCH (09:04)
[2022-12-18] MEDS: GABAPENTIN 300 MG CAP PO SCH ×2 (09:04→20:21)
[2022-12-18] MEDS: PANTOPRAZOLE 40 MG TABEC PO SCH (09:05)
[2022-12-18] MEDS: ONDANSETRON 4 MG/2 ML VIAL IM/IVP PRN ×3 (09:19→21:01)
[2022-12-18] MEDS ORDERED: ACYC-278 PO (12:56)
[2022-12-18] MEDS: NON ADHERENT DRESSING TP SCH (13:41)
--- NOTE | 2022-12-18 15:36 | NUR ---
R[employer]cher MEDICAL ASSISTANT INSTRUCTOR met with pt. once again. Pt. was unsure of wanting to go back to [facility] or [facility] SN[facility]. Pt. is unsure, but knows she cannot care for self at this time. Pt was very concerned about having pain meds and wanted morphine to be administered while at the [facility]. MEDICAL ASSISTANT INSTRUCTOR let pt. know she is going back to [facility] with Percocet and asked if it was stronger than [place]. Pt. stated she cannot walk and needs a lot of help. When asked, pt. stated she was able to speak to her niece Nikki in [place]. MEDICAL ASSISTANT INSTRUCTOR spoke to Pierce, PT who stated he will check PT notes. When Pierce came back he informed MEDICAL ASSISTANT INSTRUCTOR that pt. is Max assist with bed roll and dependent with standing and a SNF was recommended. MEDICAL ASSISTANT INSTRUCTOR asked pt. if she wanted to appeal , showed pt. the form and explained if the appeal is not in her favor, she would be responsible for the hospital bill once there was a DC order. Pt. said she cant afford to appeal. As MEDICAL ASSISTANT INSTRUCTOR was leaving, pt. stated she wanted to make her directive a DNR. MEDICAL ASSISTANT INSTRUCTOR looked in chart. The POLST is a black blurred copy and looks like there is no writing. MEDICAL ASSISTANT INSTRUCTOR asked Rn if she can have the doctor do a new POLT to reflect the pts. wishes. Rn stated she would do so. MEDICAL ASSISTANT INSTRUCTOR will remain available as needed. Addendum: 12/20/22 at 1011 by Louise Pascal RN LATE ENTRY 12/18/22 2682 [employer] MEDICAL ASSISTANT INSTRUCTOR was able to speak to pts. niece who resides in [place], Nikki Garland, who stated she does stay in frequent contact with pt./aunt. Nikki continued to say, pt. was frantic due to the unknown re. her pain meds. Pt. wants to continue to have pain meds, morphine, [place] to manage her pain, but niece said she was sure there was pain, but maybe not as much as the pt. is stating. Niece continued to say once she say pt. with a large bottle of Vicodin, "Like a [employer] bottle of Vitamins, that large" that pt. was using like candy. Niece also mentioned that the [facility], [facility] did not send over the medical directive. JARED can look in the chart to see if there is one. If there is not one listed, as long as pt. is alert and oriented, a new one can be done and signed by Dr. COLEMNA transferred the call so ninawaf can speak with pt.
[2022-12-18 16:00] VITALS: BP 148/73
[2022-12-18] MEDS: HYDROcodone/APAP 7.5/325 MG 1 TAB PO PRN ×2 (17:26→20:21)
--- NOTE | 2022-12-18 18:15 | NUR ---
WOUND CARE AND DRESSING CHANGE WAS DONE NOW.
--- NOTE | 2022-12-18 19:07 | NUR ---
CALLED LIZZIE EVANGELISTA AT [phone] SHERRILL GAVE REPORT TO GENA ALEJANDRO REGARDING CARE MANAGEMENT OF PT, PT WILL BE GOING TO [facility] AND WILL BE TRANSPORTED BY [facility] AND REGISTRAR MUSEUM WILL BE 2100H.
--- NOTE | 2022-12-18 19:51 | NUR ---
ENDORSED PT TO NIGHT RN FOR CONTINUITY OF THE DISCHARGE PROCESS AND PT TRANSFER TO [facility], PT IS STABLE AT THIS TIME
--- NOTE | 2022-12-18 19:55 | NUR ---
SPOKE TO FADI GUAJARDO INFORMING HER THAT PATIENT IS GOING BACK TO [facility]. SHE SAID OKAY.
[2022-12-18] MEDS: MUPIROCIN CA NASAL 2% 1GM TUBE NS SCH (20:21)
[2022-12-18] MEDS: CHLORHEXADINE GLUC 2% CLOTH TP SCH (20:22)
--- NOTE | 2022-12-18 20:25 | NUR ---
ALL SCHEDULED DUE MEDICATIONS ADMINISTERED. TOLERATED WELL.
--- NOTE | 2022-12-18 21:15 | NUR ---
DISCHARGED PATIENT TO [facility] IN STABLE CONDITION PICKED UP BY [facility].
== END 2022-12-18 21:15 | DRG 595 ==
LOC: MED 18:35 → MMU 21:56 → MTU 12-14 07:57
PROVIDERS: ADMIT Family Medicine; ATTEND Family Medicine
DX: B02.9 Zoster without complications (principal); J96.00 Acute respiratory failure, unspecified whether with hypoxia or hypercapnia; E44.1 Mild protein-calorie malnutrition; I50.9 Heart failure, unspecified; E03.9 Hypothyroidism, unspecified; Z20.822 Contact with and (suspected) exposure to COVID-19; D64.9 Anemia, unspecified; J44.9 Chronic obstructive pulmonary disease, unspecified; E66.9 Obesity, unspecified; I11.0 Hypertensive heart disease with heart failure; G43.909 Migraine, unspecified, not intractable, without status migrainosus; Z79.891 Long term (current) use of opiate analgesic; Z79.899 Other long term (current) drug therapy; Z68.39 Body mass index [BMI] 39.0-39.9, adult
CPT/HCPCS: 36415; 72131; 80048; 80053; 81003; 82150; 83036; 83690; 83735; 83880; 84100; 84436; 84439; 84443; 84479; 85025; 85610; 85730; 87081; 93971; 96374; 96375; 97112; 97163-GP; 97530; 99285; J2270; J2405; Q0092

== ENCOUNTER 2022-12-28 05:15 | Emergency (ER) | payer OTHER ==
[~2022-12-28] VITALS: Ht 147.3 cm; Wt 110.7 kg
[2022-12-28 05:15] VITALS: BP 159/72
[~2022-12-28 05:15] MED LIST changes: +ACYC-278 PO
--- NOTE | 2022-12-28 05:15 | NUR ---
77 yo/f lyubov from [facility] w c/o L hip pain radiating down to upper leg grinding like 10/10 worse w movement xapprox 1 week. denies injury, pt reports she was seen here for same issue recently and admitted for 5 days. pt was cecil espinoza at [address] [employer]. pmh: ckd, htn, heart failure (see chart) allergies: denies
--- NOTE | 2022-12-28 05:18 | NUR ---
PT BROUGHT TO BED 3 VIA MILI LICONA
[2022-12-28] MEDS ORDERED: MORPHINE SULFATE 4 MG/ML SYR IVP ONE (05:50)
--- NOTE | 2022-12-28 05:55 | NUR ---
MEDICATED ORDERED FOR PAIN 04/17. PLACED ON O2 AT 2L N/C
[2022-12-28] MEDS ORDERED: CYCLOBENZAPRINE 10 MG TAB PO ONE (06:20)
[2022-12-28] MEDS ORDERED: LIDOCAINE 5% 1 EA PATCH TP SCH (06:20)
[2022-12-28] MEDS ORDERED: KETOROLAC 15 MG/ML VIAL IVP ONE (06:20)
[2022-12-28] MEDS ORDERED: LIDO1ADH38 TP (06:25)
[2022-12-28] MEDS ORDERED: CYCL-711 PO (06:25)
--- NOTE | 2022-12-28 06:38 | NUR ---
verified w greg phelan pt order for toradol w hx of ckd, per greg phelan to continue w administration of order.
--- NOTE | 2022-12-28 07:14 | NUR ---
Pt report given to dee gold. Transfer of care at this time.
--- NOTE | 2022-12-28 07:44 | NUR ---
REPORT GIVEN TO MONTY COOK AT [facility] FOR PT RETURNING.
--- NOTE | 2022-12-28 08:06 | NUR ---
LIZZIE HERNÁNDEZ NOTIFED PATIENT GOING BACK TO FACILITY
--- NOTE | 2022-12-28 08:31 | NUR ---
Patient discharged with v/s stable. Written and verbal after care instructions given and explained. Patient alert, oriented and verbalized understanding of instructions. Ambulatory with to senior living. All questions addressed prior to discharge. ID band removed. Patient advised to follow up with PMD. Rx of FLEXERIL, LIDODERM given. Patient educated on indication of medication including possible reaction and side effects. Opportunity to ask questions provided and answered.
[2022-12-28 08:32] VITALS: BP 115/89
== END 2022-12-28 08:31 ==
LOC: MED 05:15
DX: M54.42 Lumbago with sciatica, left side (principal); I13.0 Hypertensive heart and chronic kidney disease with heart failure and stage 1 through stage 4 chronic kidney disease, or unspecified chronic kidney disease; N18.9 Chronic kidney disease, unspecified; I50.9 Heart failure, unspecified; J44.9 Chronic obstructive pulmonary disease, unspecified; E03.9 Hypothyroidism, unspecified; Z79.899 Other long term (current) drug therapy
CPT/HCPCS: 96374; 96375; 99284; J1885; J2270

== ENCOUNTER 2023-06-26 03:55 | Inpatient (IN) | payer OTHER ==
[~2023-06-26] VITALS: Ht 147.3 cm; Wt 97.5 kg
[~2023-06-26 03:55] MED LIST changes: +ACET-5636 PO; -ACYC-278 PO; +BISA-213 RC; +CALC500C17 PO; +CYCL-711 PO; +FURO-572 PO; +LACT-103 PO; +LIDO1ADH38 TP; +MAGN400S60 PO; +MELA10CA PO; +MULT-2171 PO; +ONDA-188 PO; +OXYC10TA43 PO; +ROPI0.5T40 PO; +SERT25TA PO; +TAMS0.4C96 PO
[2023-06-26] MEDS ORDERED: MORPHINE SULFATE 10 MG/ML VIAL IVP ONE (04:25)
[2023-06-26 04:32] VITALS: BP 152/66; PULSE 69; RESP 26; TEMP 98.5; O2SAT 97
[2023-06-26] MEDS ORDERED: ONDANSETRON 4 MG/2 ML VIAL IVP ONE (04:35)
[2023-06-26 05:27] LABS: BASOPHILS % (AUTO) 0.2 % (0.0-2.0); EOSINOPHILS % (AUTO) 0.1 % (0.0-4.0); LYMPHOCYTES # (AUTO) 0.5 K/uL (2.5-16.5); LYMPHOCYTES % (AUTO) 14.2 % (20.5-51.1); MEAN CORPUSCULAR HEMOGLOBIN 31 pg (27-31); MEAN CORPUSCULAR HGB CONC 33 g/dL (33-37); MEAN CORPUSCULAR VOLUME 93.9 fL (80-94); MONOCYTES # (AUTO) 0.4 K/uL (0.8-1.0); MONOCYTES % (AUTO) 11.2 % (1.7-9.3); NEUTROPHILS # (AUTO) 2.9 K/uL (1.8-7.7); NEUTROPHILS % (AUTO) 74.3 % (42.2-75.2); PLATELET COUNT (AUTO) 169 K/uL (140-450); RED BLOOD CELL COUNT(AUTO) 3.84 MIL/uL (4.20-5.40); RED CELL DISTRIBUTION WIDTH 19.3 % (11.6-13.7); WHITE BLOOD COUNT (AUTO) 3.8 K/uL (4.8-10.8)
[2023-06-26 07:19] LABS: ANION GAP 16.9 (8-16); CARBON DIOXIDE 22.8 mmol/L (21-32); CHLORIDE 107 mmol/L (98-107); CREATININE 1.1 mg/dL (0.6-1.3); GLUCOSE 125 mg/dL (74-106); POTASSIUM 3.7 mmol/L (3.5-5.1); SODIUM SERUM 143 mmol/L (136-145); UREA NITROGEN, BLOOD 9 mg/dL (7-18)
[2023-06-26 07:24] LABS: BILIRUBIN,DIRECT 0.2 mg/dL (0.0-0.3); TOTAL BILIRUBIN 0.5 mg/dL (0.0-1.0); TOTAL PROTEIN, SERUM 6.9 g/dL (6.4-8.2)
[2023-06-26] MEDS ORDERED: MORPHINE SULFATE 4 MG/ML SYR IVP ONE (08:25)
[2023-06-26] MEDS ORDERED: SUMAtriptan succinate 50 MG TAB PO PRN (09:00)
[2023-06-26] MEDS ORDERED: ACETAMINOPHEN 325 MG TAB PO PRN (12:50)
[2023-06-26] MEDS ORDERED: MECLIZINE 25 MG TAB PO PRN (12:50)
[2023-06-26] MEDS ORDERED: ONDANSETRON 4 MG ODT PO PRN (12:50)
[2023-06-26] MEDS ORDERED: ONDANSETRON 4 MG/2 ML VIAL IVP PRN (12:50)
[2023-06-26] MEDS ORDERED: HYDROcodone/APAP 7.5/325 MG 1 TAB PO PRN (12:50)
[2023-06-26] MEDS ORDERED: MORPHINE SULFATE 2 MG/ML SYR IVP PRN (12:50)
[2023-06-26] MEDS ORDERED: CYCLOBENZAPRINE 10 MG TAB PO PRN (12:50)
[2023-06-26] MEDS ORDERED: MAG SULF 2000 MG/WATER PREMIX 50 ML IV PRN (12:50)
[2023-06-26] MEDS ORDERED: bisacodyL 10 MG SUPP RC PRN (12:50)
[2023-06-26] MEDS ORDERED: CALCIUM CARBONATE 500 MG TAB.CHEW PO PRN (12:50)
[2023-06-26] MEDS ORDERED: POTASSIUM CHLORIDE 10 MEQ TABER PO PRN (12:50)
[2023-06-26 13:00] VITALS: PULSE 72; RESP 18; O2SAT 98
[2023-06-26] MEDS: ENOXAPARIN 30 MG/0.3 ML SYR SUBQ SCH (13:18)
[2023-06-26 13:26] LABS: BASOPHILS % (AUTO) 0.6 % (0.0-2.0); EOSINOPHILS % (AUTO) 0.2 % (0.0-4.0); HEMATOCRIT 36.2 % (36-48); LYMPHOCYTES # (AUTO) 0.7 K/uL (2.5-16.5); LYMPHOCYTES % (AUTO) 15.3 % (20.5-51.1); MEAN CORPUSCULAR HEMOGLOBIN 31 pg (27-31); MEAN CORPUSCULAR HGB CONC 33 g/dL (33-37); MEAN CORPUSCULAR VOLUME 94.1 fL (80-94); MONOCYTES # (AUTO) 0.5 K/uL (0.8-1.0); MONOCYTES % (AUTO) 12.7 % (1.7-9.3); NEUTROPHILS % (AUTO) 71.2 % (42.2-75.2); PLATELET COUNT (AUTO) 172 K/uL (140-450); RED BLOOD CELL COUNT(AUTO) 3.85 MIL/uL (4.20-5.40); RED CELL DISTRIBUTION WIDTH 19.2 % (11.6-13.7); WHITE BLOOD COUNT (AUTO) 4.2 K/uL (4.8-10.8)
[2023-06-26 13:37] LABS: CALCIUM 8.8 mg/dL (8.5-10.1); CARBON DIOXIDE 25.8 mmol/L (21-32); CHLORIDE 105 mmol/L (98-107); GLUCOSE 117 mg/dL (74-106); POTASSIUM 3.8 mmol/L (3.5-5.1); SODIUM SERUM 142 mmol/L (136-145); UREA NITROGEN, BLOOD 11 mg/dL (7-18)
[2023-06-26 13:38] LABS: PARTIAL THROMBOPLASTIN TIME 25.5 secs (22-35.6); PROTHROMBIN TIME 10.5 secs (10.8-13.4)
[2023-06-26 13:47] LABS: LACTIC ACID 1.6 mmol/L (0.4-2.0)
[2023-06-26 13:53] LABS: FREE T4 (FREE THYROXINE) 0.52 ng/dL (0.76-1.46); MAGNESIUM 2.2 mg/dL (1.8-2.4); PHOSPHORUS 4.9 mg/dL (2.5-4.9)
[2023-06-26 13:54] LABS: CHOL/HDL RATIO 4.8 (1-4.5)
[2023-06-26 14:00] VITALS: PULSE 72; RESP 18; O2SAT 98
[2023-06-26] MEDS: MORPHINE SULFATE 4 MG/ML SYR IVP PRN ×3 (14:01→20:49)
[2023-06-26] MEDS ORDERED: rOPINIRole 0.25 MG TAB PO SCH (17:00)
[2023-06-26] MEDS: NACL 0.9% 1,000 ML IV SCH (19:46)
[2023-06-26 20:00] VITALS: BP 145/62; PULSE 52; RESP 17; RESP 18; TEMP 97.3; O2SAT 98
[2023-06-26 20:40] VITALS: PULSE 57
[2023-06-26] MEDS ORDERED: DOCUSATE SODIUM 100 MG GELCAP PO SCH (21:00)
[2023-06-26] MEDS ORDERED: LOVENOX 1MG/KG Q12H SUBQ SCH (21:00)
[2023-06-26] MEDS: MELATONIN 3 MG TAB PO SCH (21:00)
[2023-06-26] MEDS: DOCUSATE SODIUM 100 MG GELCAP PO SCH (21:00)
[2023-06-26] MEDS: carvediloL 12.5 MG TAB PO SCH (21:00)
[2023-06-26] MEDS: rOPINIRole 0.25 MG TAB PO SCH (21:00)
[2023-06-26 21:04] LABS: APPEARANCE,URINE CLEAR (CLEAR); BILIRUBIN,URINE NEGATIVE (NEGATIVE); BLOOD, URINE 2+ (NEGATIVE); COLOR,URINE YELLOW (YELLOW); LEUKOCYTE ESTERASE ,URINE 1+ (NEGATIVE); NITRITE, URINE NEGATIVE (NEGATIVE); PROTEIN,URINE TRACE (NEGATIVE); UGLUCOSE NEGATIVE (NEGATIVE); UROBILINOGEN,URINE 0.2 EU/dL (0.2 - 1)
[2023-06-26 21:13] LABS: BACTERIA,URINE >30 (MANY) /HPF (None Seen); SQUAMOUS EPITHELIAL CELL,UR 4-10 (MOD) /LPF (0-3 (FEW))
[2023-06-26 21:17] LABS: AMPHETAMINE, URINE NEGATIVE ng/ml (NEG <=1000); BARBITURATE, URINE NEGATIVE ng/ml (NEG <=200); BENZODIAZEPINE, URINE NEGATIVE ng/mL (NEG <=200); CANNABINOID, URINE NEGATIVE ng/mL (NEG <=50); COCAINE, URINE NEGATIVE ng/mL (NEG <=300); OPIATE, URINE POSITIVE ng/mL (NEG <=2000); PHENCYCLIDINE SCREEN,URINE NEGATIVE ng/mL (NEG <=25)
[2023-06-27] VITALS (8 sets, daily range): BP systolic 129–155; BP diastolic 59–85; PULSE 47–61; RESP 17–18; TEMP 96.2–97.6; O2SAT 94–99
[2023-06-27] MEDS: MORPHINE SULFATE 4 MG/ML SYR IVP PRN ×3 (03:47→14:17)
[2023-06-27 05:26] LABS: BASOPHILS % (AUTO) 0.7 % (0.0-2.0); EOSINOPHILS # (AUTO) 0.2 K/uL (0-0.4); EOSINOPHILS % (AUTO) 4.2 % (0.0-4.0); HEMATOCRIT 38.2 % (36-48); HEMOGLOBIN 12.7 g/dL (12.0-16.0); LYMPHOCYTES # (AUTO) 0.5 K/uL (2.5-16.5); LYMPHOCYTES % (AUTO) 11.7 % (20.5-51.1); MEAN CORPUSCULAR HEMOGLOBIN 32 pg (27-31); MEAN CORPUSCULAR HGB CONC 33 g/dL (33-37); MEAN CORPUSCULAR VOLUME 95.2 fL (80-94); MONOCYTES # (AUTO) 0.4 K/uL (0.8-1.0); MONOCYTES % (AUTO) 10.2 % (1.7-9.3); NEUTROPHILS # (AUTO) 3.2 K/uL (1.8-7.7); NEUTROPHILS % (AUTO) 73.2 % (42.2-75.2); PLATELET COUNT (AUTO) 176 K/uL (140-450); RED BLOOD CELL COUNT(AUTO) 4.01 MIL/uL (4.20-5.40); RED CELL DISTRIBUTION WIDTH 19.1 % (11.6-13.7); WHITE BLOOD COUNT (AUTO) 4.4 K/uL (4.8-10.8)
[2023-06-27] MEDS: LEVOTHYROXINE 0.112 MG TAB PO SCH (05:30)
[2023-06-27 05:50] LABS: MAGNESIUM 2.5 mg/dL (1.8-2.4); PHOSPHORUS 5.4 mg/dL (2.5-4.9)
[2023-06-27 06:47] LABS: ANION GAP 14.2 (8-16); CALCIUM 8.8 mg/dL (8.5-10.1); CARBON DIOXIDE 27.4 mmol/L (21-32); CHLORIDE 107 mmol/L (98-107); CREATININE 1.1 mg/dL (0.6-1.3); GLUCOSE 129 mg/dL (74-106); POTASSIUM 3.6 mmol/L (3.5-5.1); SODIUM SERUM 145 mmol/L (136-145); UREA NITROGEN, BLOOD 13 mg/dL (7-18)
[2023-06-27] MEDS: TAMSULOSIN 0.4 MG CAP PO SCH (09:00)
[2023-06-27] MEDS: ENOXAPARIN 30 MG/0.3 ML SYR SUBQ SCH (09:00)
[2023-06-27] MEDS: SERTRALINE 50 MG TAB PO SCH (09:00)
[2023-06-27] MEDS: FUROSEMIDE 20 MG TAB PO SCH (09:00)
[2023-06-27] MEDS: ESCITALOPRAM 20 MG TAB PO SCH (09:00)
[2023-06-27] MEDS: PANTOPRAZOLE 40 MG INJ VIAL IVP SCH (09:00)
[2023-06-27] MEDS: FERROUS SULFATE 325 MG TABEC PO SCH (09:00)
[2023-06-27] MEDS: LIDOCAINE 5% 1 EA PATCH TP SCH (09:00)
[2023-06-27] MEDS: ASCORBIC ACID 500 MG TAB PO SCH (09:00)
[2023-06-27] MEDS: MULTIVITAMIN 1 TAB PO SCH (09:00)
[2023-06-27] MEDS: carvediloL 12.5 MG TAB PO SCH ×2 (09:00→20:02)
[2023-06-27] MEDS: GABAPENTIN 300 MG CAP PO SCH (09:00)
[2023-06-27] MEDS: DOCUSATE SODIUM 100 MG GELCAP PO SCH ×2 (09:00→20:02)
[2023-06-27] MEDS ORDERED: FOAM DRESSING TP PRN (14:15)
[2023-06-27] MEDS ORDERED: Z-GUARD PASTE TP PRN (14:15)
[2023-06-27] MEDS ORDERED: NYSTATIN POW 100 MU/GM 15 GM BTL TP PRN (14:15)
[2023-06-27] MEDS: NACL 0.9% 1,000 ML IV SCH (14:48)
[2023-06-27] MEDS: rOPINIRole 0.25 MG TAB PO SCH (17:00)
[2023-06-27] MEDS: MELATONIN 3 MG TAB PO SCH (20:02)
[2023-06-28] MEDS: NYSTATIN POW 100 MU/GM 15 GM BTL TP SCH ×2 (01:08→13:05)
[2023-06-28] MEDS: Z-GUARD PASTE TP SCH ×2 (01:10→13:04)
[2023-06-28 04:00] VITALS: BP 145/63; PULSE 78; RESP 18; TEMP 98.2; O2SAT 94
[2023-06-28] MEDS: NACL 0.9% 1,000 ML IV SCH ×2 (04:50→11:08)
[2023-06-28 05:19] LABS: ANION GAP 13.2 (8-16); CALCIUM 8.1 mg/dL (8.5-10.1); CARBON DIOXIDE 25.7 mmol/L (21-32); CHLORIDE 112 mmol/L (98-107); GLUCOSE 93 mg/dL (74-106); POTASSIUM 3.9 mmol/L (3.5-5.1); SODIUM SERUM 147 mmol/L (136-145); UREA NITROGEN, BLOOD 13 mg/dL (7-18)
[2023-06-28 05:23] LABS: HEMATOCRIT 32.1 % (36-48); HEMOGLOBIN 10.8 g/dL (12.0-16.0); MEAN CORPUSCULAR HEMOGLOBIN 32 pg (27-31); MEAN CORPUSCULAR HGB CONC 34 g/dL (33-37); MEAN CORPUSCULAR VOLUME 95.7 fL (80-94); PLATELET COUNT (AUTO) 159 K/uL (140-450); RED BLOOD CELL COUNT(AUTO) 3.35 MIL/uL (4.20-5.40); RED CELL DISTRIBUTION WIDTH 19.3 % (11.6-13.7); WHITE BLOOD COUNT (AUTO) 2.3 K/uL (4.8-10.8)
[2023-06-28 05:26] LABS: MAGNESIUM 2.5 mg/dL (1.8-2.4); PHOSPHORUS 4.4 mg/dL (2.5-4.9)
[2023-06-28 05:38] LABS: BASOPHILS % (MANUAL) 0 % (0-2); EOSINOPHILS % (MANUAL) 1 % (0-4); LYMPHOCYTES % (MANUAL) 12 % (20-46); MONOCYTES % (MANUAL) 9 % (5-12); PLATELET ESTIMATE ADEQUATE
[2023-06-28] MEDS: LEVOTHYROXINE 0.112 MG TAB PO SCH (06:12)
[2023-06-28 08:00] VITALS: PULSE 58; RESP 18; O2SAT 94
[2023-06-28] MEDS: MULTIVITAMIN 1 TAB PO SCH (09:00)
[2023-06-28] MEDS: FERROUS SULFATE 325 MG TABEC PO SCH (09:00)
[2023-06-28] MEDS: ASCORBIC ACID 500 MG TAB PO SCH (09:00)
[2023-06-28] MEDS: DOCUSATE SODIUM 100 MG GELCAP PO SCH ×2 (09:00→21:00)
[2023-06-28] MEDS: LIDOCAINE 5% 1 EA PATCH TP SCH (09:00)
[2023-06-28] MEDS: PANTOPRAZOLE 40 MG INJ VIAL IVP SCH (10:42)
[2023-06-28] MEDS: carvediloL 12.5 MG TAB PO SCH ×2 (10:43→21:12)
[2023-06-28] MEDS: TAMSULOSIN 0.4 MG CAP PO SCH (10:43)
[2023-06-28] MEDS: GABAPENTIN 300 MG CAP PO SCH (10:43)
[2023-06-28] MEDS: ESCITALOPRAM 20 MG TAB PO SCH (10:44)
[2023-06-28] MEDS: FUROSEMIDE 20 MG TAB PO SCH (10:45)
[2023-06-28] MEDS: SERTRALINE 50 MG TAB PO SCH (10:45)
[2023-06-28] MEDS: ENOXAPARIN 30 MG/0.3 ML SYR SUBQ SCH (10:51)
[2023-06-28] MEDS ORDERED: FOAM DRESSING TP SCH (13:00)
[2023-06-28 16:00] VITALS: BP 155/73; PULSE 55; RESP 18; TEMP 97.2; O2SAT 100
[2023-06-28] MEDS: rOPINIRole 0.25 MG TAB PO SCH (18:50)
[2023-06-28 20:00] VITALS: BP 155/56; PULSE 56; PULSE 59; RESP 18; TEMP 98.2; O2SAT 94
[2023-06-28] MEDS: MELATONIN 3 MG TAB PO SCH (21:12)
[2023-06-29] MEDS: Z-GUARD PASTE TP SCH (01:00)
[2023-06-29] MEDS: NYSTATIN POW 100 MU/GM 15 GM BTL TP SCH (02:03)
[2023-06-29 04:38] VITALS: BP 133/57; PULSE 65; RESP 18; TEMP 98.2; O2SAT 94
[2023-06-29 05:38] LABS: BASOPHILS % (AUTO) 1.8 % (0.0-2.0); EOSINOPHILS # (AUTO) 0.1 K/uL (0-0.4); EOSINOPHILS % (AUTO) 5.8 % (0.0-4.0); HEMATOCRIT 31.5 % (36-48); HEMOGLOBIN 10.6 g/dL (12.0-16.0); LYMPHOCYTES # (AUTO) 0.9 K/uL (2.5-16.5); LYMPHOCYTES % (AUTO) 40.9 % (20.5-51.1); MEAN CORPUSCULAR HEMOGLOBIN 32 pg (27-31); MEAN CORPUSCULAR HGB CONC 34 g/dL (33-37); MEAN CORPUSCULAR VOLUME 94.7 fL (80-94); MONOCYTES # (AUTO) 0.1 K/uL (0.8-1.0); MONOCYTES % (AUTO) 4.2 % (1.7-9.3); NEUTROPHILS # (AUTO) 1.1 K/uL (1.8-7.7); NEUTROPHILS % (AUTO) 47.3 % (42.2-75.2); PLATELET COUNT (AUTO) 149 K/uL (140-450); RED BLOOD CELL COUNT(AUTO) 3.33 MIL/uL (4.20-5.40); RED CELL DISTRIBUTION WIDTH 19.1 % (11.6-13.7); WHITE BLOOD COUNT (AUTO) 2.2 K/uL (4.8-10.8)
[2023-06-29] MEDS: LEVOTHYROXINE 0.112 MG TAB PO SCH (05:57)
[2023-06-29 06:06] LABS: ANION GAP 9.3 (8-16); CALCIUM 7.7 mg/dL (8.5-10.1); CARBON DIOXIDE 27.8 mmol/L (21-32); CHLORIDE 110 mmol/L (98-107); CREATININE 0.9 mg/dL (0.6-1.3); GLUCOSE 92 mg/dL (74-106); POTASSIUM 3.1 mmol/L (3.5-5.1); SODIUM SERUM 144 mmol/L (136-145); UREA NITROGEN, BLOOD 11 mg/dL (7-18)
[2023-06-29 06:11] LABS: MAGNESIUM 2.2 mg/dL (1.8-2.4); PHOSPHORUS 3.4 mg/dL (2.5-4.9)
[2023-06-29] MEDS ORDERED: LACTULOSE 20 GM/30 ML UDC PO PRN (09:00)
[2023-06-29] MEDS: DOCUSATE SODIUM 100 MG GELCAP PO SCH (09:00)
[2023-06-29] MEDS ORDERED: FENT1PAT8 TP (09:46)
[2023-06-29] MEDS: PANTOPRAZOLE 40 MG INJ VIAL IVP SCH (10:15)
[2023-06-29] MEDS: SERTRALINE 50 MG TAB PO SCH (10:16)
[2023-06-29] MEDS: GABAPENTIN 300 MG CAP PO SCH (10:18)
[2023-06-29] MEDS: MULTIVITAMIN 1 TAB PO SCH (10:18)
[2023-06-29] MEDS: carvediloL 12.5 MG TAB PO SCH (10:19)
[2023-06-29] MEDS: ASCORBIC ACID 500 MG TAB PO SCH (10:19)
[2023-06-29] MEDS: TAMSULOSIN 0.4 MG CAP PO SCH (10:20)
[2023-06-29] MEDS: FERROUS SULFATE 325 MG TABEC PO SCH (10:20)
[2023-06-29] MEDS: ESCITALOPRAM 20 MG TAB PO SCH (10:21)
[2023-06-29] MEDS: FUROSEMIDE 20 MG TAB PO SCH (10:22)
[2023-06-29] MEDS: ENOXAPARIN 30 MG/0.3 ML SYR SUBQ SCH (10:23)
[2023-06-29] MEDS: LIDOCAINE 5% 1 EA PATCH TP SCH (10:24)
[2023-06-29] MEDS: MORPHINE SULFATE 4 MG/ML SYR IVP PRN (11:09)
[2023-06-29 14:14] VITALS: BP 133/57; PULSE 65; RESP 18; TEMP 98.2
== END 2023-06-29 14:40 | DRG 389 ==
LOC: MED 03:55 → MTU 10:50
DX: K56.690 Other partial intestinal obstruction (principal); C18.9 Malignant neoplasm of colon, unspecified; E44.0 Moderate protein-calorie malnutrition; Z68.41 Body mass index [BMI] 40.0-44.9, adult; D69.6 Thrombocytopenia, unspecified; E66.9 Obesity, unspecified; D50.9 Iron deficiency anemia, unspecified; E86.0 Dehydration; I11.0 Hypertensive heart disease with heart failure; I50.9 Heart failure, unspecified; F32.9 Major depressive disorder, single episode, unspecified; G62.9 Polyneuropathy, unspecified; E83.39 Other disorders of phosphorus metabolism; E78.5 Hyperlipidemia, unspecified; N20.0 Calculus of kidney; E83.41 Hypermagnesemia; E03.9 Hypothyroidism, unspecified; Z79.891 Long term (current) use of opiate analgesic; Z79.899 Other long term (current) drug therapy; Z82.3 Family history of stroke; Z82.49 Family history of ischemic heart disease and other diseases of the circulatory system
CPT/HCPCS: 36415; 71045; 74250; 80048; 80076; 80305; 81001; 82140; 82150; 83605; 83690; 83735; 83880; 84100; 84439; 85025; 85610; 85730; 87040; 87081; 87086; 96374; 96375; 96376; 99285; C9113; J1650; J2270; J2405; Q0092; Q9967